=== PATIENT | male | born 1960 | race Caucasian/White ===

== ENCOUNTER 2020-07-25 21:20 | Observation (INO) | payer BC, SELFPAY ==
[2020-07-25] VITALS (8 sets, daily range): BP systolic 112–147; BP diastolic 78–124; PULSE 74–79; RESP 16–36; TEMP 36.4–36.6; O2SAT 90–100; BMI 40.6
--- NOTE | 2020-07-25 21:22 | XRR_ITS ---
PROCEDURE INFORMATION: Exam: XR Chest, 1 View Exam date and time: 07/25/2020 9:23 PM Age: 60 years old Clinical indication: Dyspnea; Prior surgery; Surgery date: Post-operative (0-2 days); Surgery type: Stents TECHNIQUE: Imaging protocol: XR of the chest Views: 1 view. COMPARISON: CT chest w con* [id number] 12/24/2018 4:55 PM FINDINGS: Lungs: Unremarkable. No consolidation. Pleural space: Unremarkable. No pleural effusion. No pneumothorax. Heart/Mediastinum: Cardiomegaly and mild pulmonary vascular congestion. Bones/joints: Unremarkable. XR/XR chest 1V portable [id number] IMPRESSION: Cardiomegaly and mild pulmonary vascular congestion.
--- NOTE | 2020-07-25 21:23 | ECG_ITS ---
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 Measurements Intervals [place] Rate: 79 P: 56 VA: 216 QRS: 11 QRSD: 126 T: 15 QT: 449 QTc: 515 Interpretive Statements SINUS RHYTHM WITH FIRST DEGREE AV BLOCK MODERATE INTRAVENTRICULAR CONDUCTION DELAY [110+ ms QRS DURATION] MODERATE ST DEPRESSION [0.05+ mV ST DEPRESSION] PROLONGED QT INTERVAL Compared to ECG 12/23/2018 10:28:40 First degree AV block now present Intraventricular conduction delay now present Prolonged QT interval now present Sinus tachycardia no longer present ST (T wave) deviation still present Electronically Signed On 07-26-2020 8:08:50 CDT by Deidra Hannah M.D. [id number] f
--- NOTE | 2020-07-25 21:42 | W.ED.SOB ---
HPI - SOB/Dyspnea General: Chief Complaint: Shortness of Breath/Dyspnea Stated Complaint: SOB Time Seen by Provider: 07/25/20 21:22 Source: patient and EMS Mode of arrival: EMS Limitations: no limitations History of Present Illness: HPI Narrative: Mr. Bishop is a 60-year-old male who comes in from home via EMS for the report of shortness of breath. Patient states he was just discharged from [facility] after a prolonged stay for heart problems. He said while he was there he received 3 stents. He states he was on oxygen and was short of breath the entire time he was there and since being discharged today he has progressively become more short of breath. He denies any chest pain. He becomes more short of breath if he lays flat or he exerts himself. The patient denies any increased edema. The patient arrives with mildly labored respirations. Associated symptoms: Reports chest congestion; Deny abdominal pain, chest pain, diaphoresis, dizziness, extremity pain, fever(s), hemoptysis, lightheadedness, nausea, orthopnea, palpitations, syncope or vomiting Review of Systems Const: Denies: fever(s), chills, body aches, fatigue, malaise or diaphoresis Eyes: Denies: change in vision, blurry vision, photophobia, eye discomfort, eye discharge, eye redness or yellow eyes ENMT: Denies: throat pain, odynophagia, hoarseness, swelling of lips/tongue, ear or mastoid pain, ear discharge, change in hearing or nasal discharge Card: Denies: chest pain, palpitations, irregular heart rhythm, edema, lightheadedness, syncope, pre-syncope, dyspnea on exertion or orthopnea Resp: Reports: dyspnea and chest congestion; Denies: productive cough, non-productive cough, wheezing or hemoptysis GI: Denies: abdominal pain, nausea, vomiting, hematemesis, coffee ground emesis, heartburn, diarrhea, constipation, GI cramping, hematochezia or melena : Denies: flank pain, dysuria, urinary frequency, urinary urgency or hematuria Musc: Denies: neck pain, back pain, extremity pain, extremity swelling, joint pain, joint swelling, joint redness, joint warmth or joint stiffness Skin/Breast: Denies: rash, pruritus, erythema, skin pain or skin tenderness Neuro: Denies: headache(s), numbness in extremities, weakness in extremities, sensory changes, lack of coordination, difficulty walking, dizziness, vertigo, confusion, Slurred speech present or seizure-like activity Sukhjinder/Lymph: Denies: easy bruising, easy bleeding, petechiae, purpura or enlarged lymph nodes All/Imm: Denies: urticaria, throat swelling, tongue swelling, facial swelling or acute wheezing Physical Exam Const: COMMON NORMALS: no acute distress, patient oriented x3, no limitations and alert GENERAL APPEARANCE: cooperative HENMT: COMMON NORMALS: normocephalic, atraumatic, external ears normal, EAC's normal and Normal external nose present HEAD & SCALP: normal to inspection, normocephalic and atraumatic FACE & SINUS: normal facial exam and face symmetric NOSE: Normal external nose present and Normal nares present EXTERNAL EAR: Yes external ears normal EXTERNAL AUDITORY CANAL: EAC's normal MOUTH: Normal oral and palatal mucosa present, lip normal and tongue normal Eye: COMMON NORMALS: Equal, round and reactive pupils present and conjunctivae normal GENERAL EYE: appearance normal, both eyes and all related structures ALIGNMENT: Yes alignment normal PERIORBITAL: periorbital findings normal EYELID: eyelids normal CONJUNCTIVA: Yes conjunctivae normal SCLERA: sclerae normal PUPIL: Yes Equal, round and reactive pupils present Neck/C-Spine: COMMON NORMALS: full ROM, no lymphadenopathy, supple, no meningeal signs and no JVD GENERAL: Yes normal visual inspection and Yes trachea midline Chest: COMMONS NORMALS: normal inspection of the chest and normal palpation of entire chest wall Resp: COMMON NORMALS: No retractions, No use of accessory muscles and clear to auscultation bilaterally EFFORT & INSPECTION: Yes able to speak in complete sentences, Yes symmetric chest movement and Yes respiratory distress AUSCULTATION: clear to auscultation bilaterally, no crackles, rales, no rhonchi, no wheezes and diminished lung sounds Cardio: COMMON NORMALS: no JVD, regular rate, regular rhythm, S1 normal heart sound present and S2 normal heart sound present RATE: regular rate RHYTHM: regular rhythm HEART SOUNDS: S1 normal heart sound present, S2 normal heart sound present, no click, no gallops, no murmurs and no rubs GI: COMMON NORMALS: Soft to palpation and No hepatosplenomegaly present PALPATION: Yes Soft to palpation, No Tenderness to palpation present (GI), No Guarding due to palpation present (GI), No Rigid due to palpation, Yes No hepatosplenomegaly present, No Hernia present, No Palpable mass present and No Pulsatile mass present : COMMON NORMALS: Yes no CVA tenderness BLADDER/KIDNEY EXAM: Yes no CVA tenderness Back/Pelvis: COMMON NORMALS: no CVA tenderness, thoracic and lumbar spine normal to inspection, no thoracic nor lumbar tenderness and thoraco-lumbar ROM normal Extremity: COMMON NORMALS: normal to inspection, full ROM, capillary refill normal, no joint enlargement, no clubbing, cyanosis or edema and no calf tenderness Neuro: COMMON NORMALS: patient oriented x3, CN's II-XII intact bilaterally, moves all extremities, no focal motor deficits and no sensory deficits noted SENSORIUM/ORIENTATION: Yes alert MENINGEAL SIGNS: Yes no meningeal signs SPEECH: speech normal Psych: COMMON NORMALS: mental status grossly normal, Normal thought process present, cooperative, normal affect, speech normal and activity/motor behavior normal SPEECH: Yes normal speech THOUGHT PROCESS: Normal thought process present Skin: COMMON NORMALS: no rashes or lesions noted, turgor normal, no jaundice, no petechiae and no mottling GENERAL SKIN EXAM: no rashes or lesions noted and turgor normal Course Vital Signs: Vital signs: Vital Signs Temperature 97.6 F 07/25/20 23:12 Pulse Rate 76 07/25/20 23:12 Respiratory Rate 29 H 07/25/20 23:12 Blood Pressure 118/78 07/25/20 23:12 Pulse Oximetry 90 07/25/20 23:12 MDM - SOB/Dyspnea MDM Narrative: Medical decision making narrative: 2315 -Mr. Bishop is a nice 60-year-old male who comes in with shortness of breath. He has orthopnea and dyspnea on exertion. His chest x-ray looks like pulmonary edema. Surprisingly his white count is high but he is afebrile. He does have chills here. Has been tested for COVID and a urinalysis is pending. I have reviewed the case with Dr. Parikh he will come to evaluate the patient the ER. Patient is markedly better now after having BiPAP for a while and is diuresed some. We are still awaiting for a discharge summary from [facility]. Lab Data: Attestation: I reviewed the patient's lab results. Labs: Lab Results 07/25/20 07/25/20 07/25/20 Range/Units 21:48 21:48 21:48 WBC 19.0 H (4.0-10.0) 10^3/ uL RBC 3.79 L (4.1-5.3) 10^6/u L Hgb 10.7 L (11.7-16.6) g/dL Hct 36.5 L (42.0-52.0) % MCV 96.3 H (80-94) fL MCH 28.2 (28.0-34.0) pg MCHC 29.3 L (30.0-36.0) g/dL RDW 16.2 H (12.1-15.1) % Plt Count 468 H (130-400) 10^3/c mm MPV 10.8 H (7.4-10.4) fL Lymph % (Auto) Not Reportable [place] % (Auto) Not Reportable Lymph # (Auto) Not Reportable [place] # (Auto) Not Reportable Total Counted 100 (0-100) Absolute Neutrophi ls 13.1 H (1.4-6.5) 10^3/c mm Segmented Neutroph ils 56 % Abs Segm Neuts (Ma n) 10.6 H (1.6-7.1) 10/cmm Band Neutrophils 13.0 % Abs Band Neuts (Ma n) 2.5 H (0.0-1.2) 10^3/c mm Lymphocytes (Manua l) 16 % Monocytes (Manual) 6.0 % Absolute Monocytes 1.1 H (0.1-0.6) 10^3/c mm Eosinophils (Manua l) 2 % Absolute Eosinophi ls 0.3 (0.0-0.7) 10^3/c mm Metamyelocytes 4.0 % Myelocytes 2.0 % Nucleated RBCs 1.0 (0-1) /100WBC Platelet Estimate Increased (Normal) Giant Platelets Trace Polychromasia 1+ H Macrocytosis 1+ H PT (12.1-14.9) SECO NDS INR (0.8-1.2) Specimen Type Sample Site ABG pH (7.35-7.45) ABG pCO2 (35-45) mmHg ABG pO2 (80.0-100.0) mmH g ABG HCO3 (22-26) mmol/L ABG O2 Saturation ABG Base Excess (-2.0-2.0) mmol/ L [place] Test A-a O2 Gradient (5-10) mmHg Hematocrit (42-52) % Hgb O2 Saturation (95-100) % Carboxyhemoglobin (0.4-20.1) %THgb Methemoglobin (0.4-1.5) % Total Hemoglobin (14-18) g/dL Ionized Calcium (1.1-1.4) mmol/L O2 Delivery Device FiO2 % Reporting Process Consultant ID Sodium 133 L (136-145) mmol/L Potassium 5.2 H (3.5-5.1) mmol/L Chloride 91 L (98-107) mmol/L Carbon Dioxide 24 (22-29) mmol/L Anion Gap 23.2 H (5-19) BUN 14 (8-23) mg/dL Creatinine 1.5 H (0.7-1.2) mg/dL GFR Calculation 47.7 L (90-130) mL/min Glucose 305 H (65-115) mg/dL Calculated Osmolal ity 288 (285-295) mOsm/k g Calcium 9.1 (8.5-10.5) mg/dL Magnesium 2.3 (1.7-2.3) mg/dL Total Bilirubin 0.6 (0.15-1.2) mg/dL AST 42 H (0-40) U/L ALT 63 H (0-41) U/L Alkaline Phosphata se 214 H (40-130) IU/L Troponin T Baselin e 58 H (0-15) ng/L NT-Pro-B Natriuret Pep 46267 H (0-125) pg/mL Total Protein 6.6 (6.6-8.7) g/dL Albumin 3.6 (3.5-5.2) g/dL Globulin 3.0 (1.3-4.6) g/dL 07/25/20 07/25/20 Range/Units 22:03 22:19 WBC (4.0-10.0) 10^3/ uL RBC (4.1-5.3) 10^6/u L Hgb (11.7-16.6) g/dL Hct (42.0-52.0) % MCV (80-94) fL MCH (28.0-34.0) pg MCHC (30.0-36.0) g/dL RDW (12.1-15.1) % Plt Count (130-400) 10^3/c mm MPV (7.4-10.4) fL Lymph % (Auto) [place] % (Auto) Lymph # (Auto) [place] # (Auto) Total Counted (0-100) Absolute Neutrophi ls (1.4-6.5) 10^3/c mm Segmented Neutroph ils % Abs Segm Neuts (Ma n) (1.6-7.1) 10/cmm Band Neutrophils % Abs Band Neuts (Ma n) (0.0-1.2) 10^3/c mm Lymphocytes (Manua l) % Monocytes (Manual) % Absolute Monocytes (0.1-0.6) 10^3/c mm Eosinophils (Manua l) % Absolute Eosinophi ls (0.0-0.7) 10^3/c mm Metamyelocytes % Myelocytes % Nucleated RBCs (0-1) /100WBC Platelet Estimate (Normal) Giant Platelets Polychromasia Macrocytosis PT 18.70 H (12.1-14.9) SECO NDS INR 1.50 H (0.8-1.2) Specimen Type Arterial Sample Site Brachial, right ABG pH 7.51 H (7.35-7.45) ABG pCO2 29.5 L (35-45) mmHg ABG pO2 168.0 H (80.0-100.0) mmH g ABG HCO3 23.4 (22-26) mmol/L ABG O2 Saturation > 100.0 ABG Base Excess 0.9 (-2.0-2.0) mmol/ L [place] Test Pos A-a O2 Gradient 10.3 H (5-10) mmHg Hematocrit 32.4 L (42-52) % Hgb O2 Saturation 98.9 (95-100) % Carboxyhemoglobin 1.3 (0.4-20.1) %THgb Methemoglobin 0.3 L (0.4-1.5) % Total Hemoglobin 10.6 L (14-18) g/dL Ionized Calcium 1.1 (1.1-1.4) mmol/L O2 Delivery Device Bipap FiO2 40.0 % Reporting Process Consultant ID [id number] Sodium 135.0 (136-145) mmol/L Potassium 4.7 (3.5-5.1) mmol/L Chloride (98-107) mmol/L Carbon Dioxide (22-29) mmol/L Anion Gap (5-19) BUN (8-23) mg/dL Creatinine (0.7-1.2) mg/dL GFR Calculation (90-130) mL/min Glucose 286.0 H (65-115) mg/dL Calculated Osmolal ity (285-295) mOsm/k g Calcium (8.5-10.5) mg/dL Magnesium (1.7-2.3) mg/dL Total Bilirubin (0.15-1.2) mg/dL AST (0-40) U/L ALT (0-41) U/L Alkaline Phosphata se (40-130) IU/L Troponin T Baselin e (0-15) ng/L NT-Pro-B Natriuret Pep (0-125) pg/mL Total Protein (6.6-8.7) g/dL Albumin (3.5-5.2) g/dL Globulin (1.3-4.6) g/dL Imaging Data^: CXR: Attestation: I personally reviewed and interpreted this imaging study as follows: My impression: Cardiomegaly with mild pulmonary vascular congestion. EKG Data^: EKG 1: Attestation: I personally reviewed and interpreted this EKG as follows: EKG Interpretation Date: 07/25/20 EKG interpretation time: 21:30 Interpretation: Normal sinus rhythm with a first-degree AV block, normal QRS and QTc interval. Nonspecific ST and T wave changes. Discharge Plan Discharge Patient Disposition: Placed in Observation Clinical Impression: Acute exacerbation of congestive heart failure Condition: Stable Prescriptions: No Action Unable to Assess RF: 0 Referrals: Brooklyn Padilla MD [Primary Care Provider] - Coding Level of Care Code ED Development Coach for Chg Fwd Exam Comprehensive
[2020-07-25] MEDS: FUROsemide 10 mg/mL SDV 4mL 40 MG IVP (21:52)
[2020-07-25] MEDS: nitroglycerin 1 gm/inch oint Pkt 1 INCH TOPICAL (21:52)
[2020-07-25 22:16] LABS: ABG PCO2 29.5 mmHg (35-45); ABG PH Result 7.51 (7.35-7.45); Alveolar-Arterial Oxygen Gradi 10.3 mmHg (5-10); Arterial Blood Gas Hematocrit 32.4 % (42-52); Base Excess ABG 0.9 mmol/L (-2.0-2.0); Blood Gas Allen Test Pos; Blood Gas Sample Site Brachial, right; Blood Gas Sample Type Arterial; Carboxyhemoglobin 1.3 %THgb (0.4-20.1); HCO3 ABG 23.4 mmol/L (22-26); HGB O2 Sat 98.9 % (95-100); Ionized Calcium Level - ABG 1.1 mmol/L (1.1-1.4); Methemoglobin 0.3 % (0.4-1.5); Oxygen Device BIPAP; Oxygen Saturation ABG > 100.0; Potassium Level - ABG 4.7 mmol/L (3.5-5.0); Total Hemoglobin 10.6 g/dL (14-18)
[2020-07-25 22:24] LABS: Hematocrit 36.5 % (42.0-52.0); Hemoglobin 10.7 g/dL (11.7-16.6); Mean Corpuscular HGB Conc 29.3 g/dL (30.0-36.0); Mean Corpuscular Hemoglobin 28.2 pg (28.0-34.0); Mean Corpuscular Volume 96.3 fL (80-94); Mean Platelet Volume 10.8 fL (7.4-10.4); Platelet Count 468 10^3/cmm (130-400); Red Blood Count 3.79 10^6/uL (4.1-5.3); Red Cell Distribution Width 16.2 % (12.1-15.1); Troponin(5th) Baseline 58 ng/L (0-15)
[2020-07-25 22:33] LABS: Alanine Aminotransferase 63 U/L (0-41); Albumin Level 3.6 g/dL (3.5-5.2); Alkaline Phosphatase 214 IU/L (40-130); Blood Urea Nitrogen 14 mg/dL (8-23); Calcium 9.1 mg/dL (8.5-10.5); Carbon Dioxide 24 mmol/L (22-29); Chloride 91 mmol/L (98-107); Creatinine Clr Calc Pharmacy 74.8083; Glomerular Filtration Rate 47.7 mL/min (90-130); Glucose 305 mg/dL (65-115); Magnesium 2.3 mg/dL (1.7-2.3); NT Pro B Type Natriuretic Pept 10096 pg/mL (0-125); Osmolality Calculated 288 mOsm/kg (285-295); Sodium 133 mmol/L (136-145); Total Bilirubin 0.6 mg/dL (0.15-1.2); Total Protein 6.6 g/dL (6.6-8.7)
[2020-07-25] MEDS: ipratropium-albuterol 3 mL Neb 9 ML INHALATION (22:35)
[2020-07-25 22:42] LABS: Anion Gap 23.2 (5-19); Aspartate Amino Transferase 42 U/L (0-40); Potassium 5.2 mmol/L (3.5-5.1)
[2020-07-25 23:00] LABS: Slide Review Slide Review Perform
[2020-07-25 23:01] LABS: Absolute Eosinophils 0.3 10^3/cmm (0.0-0.7); Absolute Segmented Neutrophil 10.6 10/cmm (1.6-7.1); Band Neutrophils Absolute 2.5 10^3/cmm (0.0-1.2); Eosinophils 2 %; Lymphocytes 16 %; Monocytes Absolute 1.1 10^3/cmm (0.1-0.6); Segmented Neutrophils 56 %; Total Cells Counted 100 (0-100)
[2020-07-25 23:02] LABS: Absolute Neutrophil 13.1 10^3/cmm (1.4-6.5); Giant Platelets Trace; Macrocytosis 1+; Platelet Estimate Increased (Normal); Polychromasia 1+
--- NOTE | 2020-07-25 23:23 | ECG_ITS ---
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 Measurements Intervals [place] Rate: 78 P: 20 MA: 199 QRS: 19 QRSD: 121 T: 50 QT: 403 QTc: 459 Interpretive Statements SINUS RHYTHM WITH SINUS ARRHYTHMIA MODERATE INTRAVENTRICULAR CONDUCTION DELAY [110+ ms QRS DURATION] ST DEVIATION AND MODERATE T-WAVE ABNORMALITY, CONSIDER ANTEROLATERAL ISCHEMIA [-0.1+ mV T WAVE IN V3-V6] WARNING: DATA QUALITY MAY AFFECT INTERPRETATION Compared to ECG 12/23/2018 10:28:40 Intraventricular conduction delay now present T-wave abnormality now present Possible ischemia now present Sinus tachycardia no longer present ST (T wave) deviation no longer present Electronically Signed On 07-26-2020 8:41:48 CDT by Deidra Hannah M.D. [id number]
[2020-07-25] MEDS: piperacillin-tazobactam 3.375 GM in sodium chloride 0.9% (plus) 50 ML IV (23:30)
--- NOTE | 2020-07-25 23:37 | P.HP_ITS ---
Providers/Chief Complaint Primary Care Provider: Brooklyn Padilla MD Chief Complaint: SOB History of Present Illness Kulwant Bishop is a 60 year old male who was discharged yesterday from [facility] after management of cardiogenic shock, PCI of circumflex 07/23, reduced ejection fraction heart failure EF 25 to 30%, was discharged without any oxygen or Lasix came in today for worsening shortness of breath. At the other facility he was intubated for acute respiratory failure, he self extubated on 07/06, did not require reintubation, ICU course was complicated by severe ICU delirium. He required Precedex and antipsychotics for his hyperactive delirium. Paracentesis was unsuccessful, he was diagnosed with new onset diabetes A1c 6.6, he was recommended SNF placement which patient declined. He did not require oxygen at the time of discharge. Patient came to the emergency department today after experiencing orthopnea, PND and worsening of shortness of breath. He did not notice any fever, productive cough, dysuria change in bowel movements. He is denying use of alcohol, does not smoke cigarettes. Diagnosis in the ER revealed leukocytosis, atrial fibrillation without RVR, anemia hemoglobin 10.7, macrocytic, congestive heart failure exacerbation with high BNP 10,000, respiratory alkalosis, he was given Zosyn in the ER, there is no source of infection, glucose 286 potassium 5.2, creatinine 1.5 patient not complaining of any active chest pain/troponin 58, no ischemic or infarctive changes on EKG. He was put on BiPAP, nitroglycerin 1 inch paste and 40 milligrams of IV Lasix was given Review of Systems Const: Reports: chills, body aches and fatigue; Denies: fever(s) Eyes: Denies: change in vision ENMT: Denies: throat pain Card: Reports: swelling of feet/ankles, dyspnea on exertion and orthopnea Resp: Reports: dyspnea and non-productive cough; Denies: productive cough GI: Denies: abdominal pain, diarrhea or constipation : Denies: flank pain Musc: Denies: neck pain Skin/Breast: Denies: rash Neuro: Denies: headache(s) Psych: Denies: anxiety Endo: Denies: polyuria Sukhjinder/Lymph: Denies: easy bruising All/Imm: Denies: urticaria Medications/Allergies Home Medications Medication Instructions Recorded Confirmed Last Taken Type Unable to Assess 07/25/20 07/25/20 Unknown History Allergies Allergy/AdvReac Type Severity Reaction Status Date / Time codeine Allergy Unknown Verified 07/25/20 21:25 PFSH Acute PFSH: Medical History (Updated 07/26/20 @ 02:31 by Hunter Parikh MD) Atrial fibrillation 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 Family History Father Chronic kidney disease (CKD) Social History Smoking and tobacco status: former smoker Quit status (tobacco): has quit using tobacco Former quit date comment: 2014 Alcohol intake: former Substance/Drug Use: never Household members: spouse Housing: House Vitals/I&O/Wt Last Vital Signs Temp 97.6 F 07/25/20 23:12 Pulse 76 07/25/20 23:12 Resp 29 H 07/25/20 23:12 BP 118/78 07/25/20 23:12 Pulse Ox 90 07/25/20 23:12 Weight last 48 hrs Weight 136.078 kg Physical Exam Narrative: EXAM NARRATIVE: Morbidly obese male sitting comfortably in his bed Required BiPAP in the ER at the time of my evaluation he is saturating well on room air Systolic blood pressure 97, Nitropaste was removed Patient was awake alert oriented x3, GCS 15 S1, S2 clinical signs of fluid overload Lower extremity edema 2+ Hard to assess JVD Bilateral breath sounds without adventitious rhonchi or wheezing Abdomen distended bowel sound present Pedal, lower extremity 2+ edema EOMI, PERRLA Data : 07/25/20 21:48 07/25/20 21:48 A&P Assessment and plan (1) Acute exacerbation of congestive heart failure: Status: Acute Qualifiers: Heart failure type: unspecified Qualified Code(s): I50.9 - Heart failure, unspecified (2) Newly diagnosed diabetes: Status: Acute (3) Hyperkalemia: Status: Acute (4) Morbid obesity: Status: Acute (5) Acute respiratory failure with hypoxia: Status: Acute Additional A&P Information Acute exacerbation of reduced ejection fraction heart failure(EF 30%) Recent PCI at [facility] on 07/23 No active chest pain, no ischemic or infarctive changes on EKG, troponin baselin e 58, Serial troponin and EKG I would add Bumex considering his high BNP and clinical signs of fluid overload Chest x-ray shows pulmonary vascular congestion, abnormal transaminases secondary to hepatic congestion, Continue aspirin, Plavix, statin and metoprolol succinate Holding lisinopril secondary to abnormal creatinine Acute hypoxic respiratory failure secondary to CHF exacerbation Currently doing well on BiPAP Will need home O2 assessment before discharge No signs of pneumonia He had received Zosyn in the ER secondary to leukocytosis which I believe is leukemoid reaction to stress I would not continue antibiotics at this point, patient not septic at the time of admission Acute kidney injury Most likely cardiorenal etiology Holding lisinopril Anticipating improvement with diuresis For mild hyperkalemia I would only give calcium gluconate x1, will hold off on Kayexalate Newly diagnosed type 2 diabetes Moderate sliding scale Full code DVT prophylaxis Heparin Cardiac consistent carb diet Attestations Medical Necessity Statement*: Anticipating discharge in less than 48 hours continued management for acute CHF exacerbation Time Spent in Patient Care: (>than 50% of time spent in counselling and/or direct pt care on unit) . 40 minutes Coding Level of Care Code Acute Control Systems Specialist for Vianca Maloney Diagnoses Acute exacerbation of congestive heart failure I50.9 Heart failure type: unspecified Newly diagnosed diabetes E11.9 Hyperkalemia E87.5 Morbid obesity E66.01 Acute respiratory failure with hypoxia J96.01
[2020-07-25 23:43] LABS: SARS Covid-2 Antigen Negative (Negative)
[2020-07-26] VITALS (36 sets, daily range): BP systolic 59–114; BP diastolic 45–89; PULSE 70–80; RESP 9–30; TEMP 36.6–36.8; O2SAT 80–100
--- NOTE | 2020-07-26 01:00 | PC.NURSE ---
Patient arrived to unit via stretcher. Patient alert and oriented and able to follow commands. Patient answered all admission questions and rolled into the bed and allowed us to examine and change patient. Patient settled into bed and RT in room to set up Bipap. Got new order for lanolin lip balm to help with drying. 20 G noted to Left wrist flushed and patent. VS WNL will continue to monitor and assist as needed following CPOC
[2020-07-26 01:38] LABS: Add Urine Microscopic? NO
[2020-07-26 01:50] LABS: Bilirubin Urine Neg (Negative); Blood Urine Neg (Negative); Glucose Urine UA Norm (Normal); Ketones Urine Negative (Negative); Leukocyte Esterase Urine Negative (Negative); Nitrate Urine Negative (Negative); Protein Urine Neg (Negative); Specific Gravity, Urine 1.005 (1.005-1.030); Urine Appearance Clear (CLEAR); Urine Color Yellow (Yellow); Urobilinogen Urine Norm (Negative); pH Urine 6.5 (5-7)
--- NOTE | 2020-07-26 02:35 | PC.NURSE ---
Patient Urinalysis sample collected and sent to lab. Patient still alert and oriented awakened for medications gave atorvastatin and Lovenox injection for VTE. Patient still alert and oriented and cooperative. Placed on Bipap therapy at this time for CO2 retention and low O2 saturations. Will continue to monitor patient tolerating bipap well at this time. settings 18/6 at 35 FiO2. Full face mask in use.
[2020-07-26] MEDS: atorvastatin 40 mg Tablet 80 MG PO (02:41)
[2020-07-26] MEDS: lanolin oint 7 gm 1 APPLIC TOPICAL (02:42)
--- NOTE | 2020-07-26 03:30 | PC.NURSE ---
Patient calling out went to room and patient had pulled out IV. Hemostasis already achieved. patient confused and not wearing Bipap was back on nasal canula at 4 L O2. Patient incoherent at this time. RT notified and message sent to Hospitalist transmission operator. New IV started to R forearm 20 G patent and intact with good flush and brisk blood return noted. Coban wrapped to help protect site. Patient stating I am wet patient bedding checked and patient was not incontinent at this time. Patient making statements about this telegraphic typewriter operator being an and that this was an [facility]. Patient unable to be reoriented at this time. Patient was finally convineced to put on Bipap and provider responded that according to documents from other facility this was a common behavior for this patient. Will continue to monitor and assist as needed following CPOC.
[2020-07-26 03:51] LABS: Basophils # 0.1 10^3/uL (0.0-0.1); Basophils % 0.5 %; Eosinophils # 0.1 10^3/uL (0.0-0.8); Eosinophils % 0.6 %; Hematocrit 29.5 % (42.0-52.0); Hemoglobin 8.8 g/dL (11.7-16.6); Lymphocytes # 1.2 10^3/uL (0.8-4.8); Lymphocytes % 8.1 %; Mean Corpuscular HGB Conc 29.8 g/dL (30.0-36.0); Mean Corpuscular Hemoglobin 28.3 pg (28.0-34.0); Mean Corpuscular Volume 94.9 fL (80-94); Mean Platelet Volume 10.5 fL (7.4-10.4); Monocytes % 6.6 %; Neutrophils # 10.83 10^3/uL (1.8-7.7); Neutrophils % 71.9 %; Nucleated Red Blood Cells # 0.3 /100WBC; Nucleated Red Blood Cells % 1.9 %; Platelet Count 340 10^3/cmm (130-400); Red Blood Count 3.11 10^6/uL (4.1-5.3); Red Cell Distribution Width 15.9 % (12.1-15.1); White Blood Count 15.1 10^3/uL (4.0-10.0)
[2020-07-26 04:11] LABS: Troponin 5 6HR 43.03 ng/L (0-15)
[2020-07-26 04:12] LABS: Anion Gap 14.5 (5-19); Blood Urea Nitrogen 17 mg/dL (8-23); Calcium 8.8 mg/dL (8.5-10.5); Carbon Dioxide 30 mmol/L (22-29); Chloride 95 mmol/L (98-107); Creatinine Clr Calc Pharmacy 80.1517; Glomerular Filtration Rate 51.7 mL/min (90-130); Glucose 122 mg/dL (65-115); Osmolality Calculated 283 mOsm/kg (285-295); Potassium 4.5 mmol/L (3.5-5.1); Sodium 135 mmol/L (136-145)
--- NOTE | 2020-07-26 04:20 | PC.NURSE ---
This promotion writer and RT have made several attempts to maintain patient with bipap therapy and WNL SpO2. Patient remains confused and again told this promotion writer that he was cold and bed was wet asking this promotion writer to get some of the wood over there and start a fire so we could get warm. Patient was checked and again was not incontinent at this time. Attempted to redirect and reorient patient with little success. Patient left with Bipap on and breathing normally SpO2 of 96 noted. Patient still moaning and confused. Will continue to monitor and assist as needed following CPOC patient assisted with repositioning at this time.
--- NOTE | 2020-07-26 05:00 | PC.NURSE ---
Patient again called out using call light this time. Patient on 4 L NC and not agreeable to wear Bipap. RT left patient on NC. Patient stated he was wet. Patient checked and this time patient was wet and required a complete bed change. MUSHROOM CULTIVATOR notified as this nurse was asked to help with some furniture moving and repositioning of room for new admit coming to another room. When this nurse came back out from completing said task light was out and patient was laying in bed with eyes closed and did not voice any further concern.
--- NOTE | 2020-07-26 06:00 | PC.NURSE ---
RT and Charge nurse in to talk with patient as patient requesting to leave AMA. Volte message sent to provider which was read but no response. Patient very upset and demanding to leave. Patient appears to be very coherent now Voicing concerns about stay with [facility] and sent home with no oxygen and going down hill from there. Staff tried to talk with patient to have him wait to obtain oxygen provider finally in to speak with patient and try to calm concerns. Patient very attimant that he was going home now. Patient threatened GOVERNMENT PROFESSOR with her job if she did not take him out to car right this minute. GOVERNMENT PROFESSOR reponded that she was unable to at this time due to paperwork being incomplete and IV still inplace. Patient got very verbal with GOVERNMENT PROFESSOR. Will continue to monitor and assist as needed.
--- NOTE | 2020-07-26 06:50 | PC.NURSE ---
Dr. Parikh came and seen patient since he was wanting to leave against medical advice. Patient stated to Dr. Parikh that his only complaint was that he was wet and he was wanting to leave. Jl went over risks of leaving against medical advice and Jl states patient is alert enough to sign AMA paper. Patient signed and wheeled out by staff to ER entrance.
--- NOTE | 2020-07-26 07:00 | PC.NURSE ---
Patient assisted to wheelchair by COAL SHOVELER and wheeled out to POV for discharge. AMA papers signed and patient left facility in hospital gown via wheelchair and POV driven by family. Time of discharge 0710
== END 2020-07-26 07:05 | disposition home or self-care (01) ==
LOC: ER 23:17 → CSU 07-26 00:06
PROVIDERS: Admitting Provider Internal Medicine; Emergency Provider Emergency Medicine; PCP Family Medicine; Visit Provider Student in an Organized Health Care Education/Training Program
DX: I50.9 Heart failure, unspecified (principal); J96.01 Acute respiratory failure with hypoxia; I48.91 Unspecified atrial fibrillation; I10 Essential (primary) hypertension; E11.9 Type 2 diabetes mellitus without complications; E87.5 Hyperkalemia; I25.10 Atherosclerotic heart disease of native coronary artery without angina pectoris; E66.01 Morbid (severe) obesity due to excess calories; Z68.41 Body mass index [BMI] 40.0-44.9, adult; Z79.01 Long term (current) use of anticoagulants; Z87.891 Personal history of nicotine dependence; Z95.5 Presence of coronary angioplasty implant and graft; Z88.5 Allergy status to narcotic agent; Z53.29 Procedure and treatment not carried out because of patient's decision for other reasons
CPT/HCPCS: 12345; 36415; 36600; 71045; 80048; 80051; 80053; 81003; 82810; 83735; 83880; 83986; 84484; 85007; 85025; 85610; 87426; 93005; 94640; 94660; 96365; 96367; 96375; 99284; 99291; G0378; J0610; J1940; J2543

== ENCOUNTER 2020-07-27 15:33 | Observation (INO) | payer BC, SELFPAY ==
[2020-07-27] VITALS (10 sets, daily range): BP systolic 105–150; BP diastolic 53–89; PULSE 72–79; RESP 17–22; TEMP 36.4–37.2; O2SAT 93–100; BMI 38.6
--- NOTE | 2020-07-27 15:40 | XRR_ITS ---
PROCEDURE INFORMATION: Exam: XR Chest, 1 View Exam date and time: 07/27/2020 3:42 PM Age: 60 years old Clinical indication: Shortness of breath; Additional info: Dyspnea TECHNIQUE: Imaging protocol: XR of the chest Views: 1 view. COMPARISON: CR XR chest 1V portable [id number] 07/25/2020 9:23 PM FINDINGS: Lungs: Bilateral mild senile fibrosis. No visible evidence of active consolidated alveolar airspace disease. Pleural space: Unremarkable. No pleural effusion. No pneumothorax. Heart/Mediastinum: Cardiomegaly. Bones/joints: Unremarkable. XR/XR chest 1V portable [id number] IMPRESSION: Stable nonacute.
--- NOTE | 2020-07-27 15:41 | ECG_ITS ---
[facility] Test Date: 2020-07-27 Pat Name: Kulwant Bishop Department: Room: Gender: Male Arterial Embalmer: : 1960 Requested By: Laurel Skinner Order Number: [id number] Renea MD: Cain Balderas M.D. Measurements Intervals Delton Rate: 73 P: 39 IL: 189 QRS: 28 QRSD: 118 T: 27 QT: 423 QTc: 466 Interpretive Statements SINUS RHYTHM MODERATE INTRAVENTRICULAR CONDUCTION DELAY [110+ ms QRS DURATION] NONSPECIFIC ST & T-WAVE ABNORMALITY Compared to ECG 07/25/2020 23:04:23 Sinus arrhythmia no longer present Possible ischemia no longer present T-wave abnormality still present Electronically Signed On 07-28-2020 19:11:08 CDT by Cain Balderas M.D. [id number] f
--- NOTE | 2020-07-27 16:17 | W.ED.SOB ---
HPI - SOB/Dyspnea General: Chief Complaint: Shortness of Breath/Dyspnea Stated Complaint: HYPOXIA Time Seen by Provider: 07/27/20 15:40 Source: patient and EMS Mode of arrival: EMS Limitations: no limitations History of Present Illness: HPI Narrative: Kulwant is a 60-year-old male who recently had stents placed and was treated at [facility] in [place] for a prolonged period of time. He was recently admitted here to the hospital by me for exacerbation of congestive heart failure. By report the patient apparently left AMA the next morning. He states he was tired of sitting and a urine soaked diaper that he wore. Patient states that since going home he has become short of breath again and that is why he is return to the hospital. He denies any chest pain, fever, headache, injuries or infectious symptoms. He has no cough. He states he needs oxygen and he would be fine. Patient does have mild labored respirations on exam. Associated symptoms: Deny abdominal pain, chest congestion, chest pain, diaphoresis, dizziness, extremity pain, fever(s), hemoptysis, lightheadedness, nausea, orthopnea, palpitations, syncope or vomiting Review of Systems Const: Denies: fever(s), chills, body aches, fatigue, malaise or diaphoresis Eyes: Denies: change in vision, blurry vision, photophobia, eye discomfort, eye discharge, eye redness or yellow eyes ENMT: Denies: throat pain, odynophagia, hoarseness, swelling of lips/tongue, ear or mastoid pain, ear discharge, change in hearing or nasal discharge Card: Reports: edema and swelling of feet/ankles; Denies: chest pain, palpitations, irregular heart rhythm, lightheadedness, syncope, pre-syncope, dyspnea on exertion or orthopnea Resp: Reports: dyspnea; Denies: productive cough, non-productive cough, wheezing, hemoptysis or chest congestion GI: Denies: abdominal pain, nausea, vomiting, hematemesis, coffee ground emesis, heartburn, diarrhea, constipation, GI cramping, hematochezia or melena : Denies: flank pain, dysuria, urinary frequency, urinary urgency or hematuria Musc: Denies: neck pain, back pain, extremity pain, extremity swelling, joint pain, joint swelling, joint redness, joint warmth or joint stiffness Skin/Breast: Denies: rash, pruritus, erythema, skin pain or skin tenderness Neuro: Denies: headache(s), numbness in extremities, weakness in extremities, sensory changes, lack of coordination, difficulty walking, dizziness, vertigo, confusion, Slurred speech present or seizure-like activity Sukhjinder/Lymph: Denies: easy bruising, easy bleeding, petechiae, purpura or enlarged lymph nodes All/Imm: Denies: urticaria, throat swelling, tongue swelling, facial swelling or acute wheezing PFSH ED PFSH: Medical History (Updated 07/27/20 @ 17:51 by Laurel Estrada) Atrial fibrillation 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 Chronic anticoagulation Congestive heart failure Coronary artery disease DM type 2 (diabetes mellitus, type 2) Hypertension Surgical History Hx of colonoscopy Removal of polyp tubular adenoma S/P coronary artery stent placement Stented coronary artery Circumflex, 07/23 at [facility] Family History Father Chronic kidney disease (CKD) Social History Smoking and tobacco status: former smoker Quit status (tobacco): has quit using tobacco Former quit date comment: 2014 Alcohol intake: former Household members: spouse Housing: House Physical Exam Const: COMMON NORMALS: no acute distress, patient oriented x3, no limitations and alert GENERAL APPEARANCE: cooperative HENMT: COMMON NORMALS: normocephalic, atraumatic, external ears normal, EAC's normal and Normal external nose present HEAD & SCALP: normal to inspection, normocephalic and atraumatic FACE & SINUS: normal facial exam and face symmetric NOSE: Normal external nose present and Normal nares present EXTERNAL EAR: Yes external ears normal EXTERNAL AUDITORY CANAL: EAC's normal MOUTH: Normal oral and palatal mucosa present, lip normal and tongue normal Eye: COMMON NORMALS: Equal, round and reactive pupils present and conjunctivae normal GENERAL EYE: appearance normal, both eyes and all related structures ALIGNMENT: Yes alignment normal PERIORBITAL: periorbital findings normal EYELID: eyelids normal CONJUNCTIVA: Yes conjunctivae normal SCLERA: sclerae normal PUPIL: Yes Equal, round and reactive pupils present Neck/C-Spine: COMMON NORMALS: full ROM, no lymphadenopathy, supple, no meningeal signs and no JVD GENERAL: Yes normal visual inspection and Yes trachea midline Chest: COMMONS NORMALS: normal inspection of the chest and normal palpation of entire chest wall Resp: COMMON NORMALS: normal respiratory effort, No retractions, No use of accessory muscles and clear to auscultation bilaterally EFFORT & INSPECTION: Yes able to speak in complete sentences and Yes symmetric chest movement AUSCULTATION: clear to auscultation bilaterally, no crackles, rales, no rhonchi and no wheezes Cardio: COMMON NORMALS: no JVD, regular rate, regular rhythm, S1 normal heart sound present and S2 normal heart sound present RATE: regular rate RHYTHM: regular rhythm HEART SOUNDS: S1 normal heart sound present, S2 normal heart sound present, no click, no gallops, no murmurs and no rubs GI: COMMON NORMALS: Soft to palpation and No hepatosplenomegaly present PALPATION: Yes Soft to palpation, No Tenderness to palpation present (GI), No Guarding due to palpation present (GI), No Rigid due to palpation, Yes No hepatosplenomegaly present, No Hernia present, No Palpable mass present and No Pulsatile mass present : COMMON NORMALS: Yes no CVA tenderness BLADDER/KIDNEY EXAM: Yes no CVA tenderness Back/Pelvis: COMMON NORMALS: no CVA tenderness, thoracic and lumbar spine normal to inspection, no thoracic nor lumbar tenderness and thoraco-lumbar ROM normal Extremity: COMMON NORMALS: normal to inspection, full ROM, capillary refill normal, no joint enlargement, no clubbing, cyanosis or edema and no calf tenderness Neuro: COMMON NORMALS: patient oriented x3, CN's II-XII intact bilaterally, moves all extremities, no focal motor deficits and no sensory deficits noted SENSORIUM/ORIENTATION: Yes alert MENINGEAL SIGNS: Yes no meningeal signs SPEECH: speech normal Psych: COMMON NORMALS: mental status grossly normal, Normal thought process present, cooperative, normal affect, speech normal and activity/motor behavior normal SPEECH: Yes normal speech THOUGHT PROCESS: Normal thought process present Skin: COMMON NORMALS: no rashes or lesions noted, turgor normal, no jaundice, no petechiae and no mottling GENERAL SKIN EXAM: no rashes or lesions noted and turgor normal Course Vital Signs: Vital signs: Vital Signs Temperature 98.9 F 07/27/20 15:43 Pulse Rate 75 07/27/20 15:43 Respiratory Rate 18 07/27/20 15:43 Blood Pressure 128/76 07/27/20 15:43 Pulse Oximetry 100 07/27/20 15:43 MDM - SOB/Dyspnea MDM Narrative: Medical decision making narrative: Patient appears to be in mild to moderate congestive heart failure. He cannot ambulate without hypoxia or significant weakness. I reviewed the case with Dr. Agee she is revealed to admission at this time. Lab Data: Labs: Lab Results 07/27/20 07/27/20 07/27/20 Range/Units 16:24 16:24 16:24 WBC 16.3 H (4.0-10.0) 10^3/ uL Corrected WBC 15.1 H (4.8-10.8) 10^3/ cmm RBC 3.36 L (4.1-5.3) 10^6/u L Hgb 9.7 L (11.7-16.6) g/dL Hct 32.5 L (42.0-52.0) % MCV 96.7 H (80-94) fL MCH 28.9 (28.0-34.0) pg MCHC 29.8 L (30.0-36.0) g/dL RDW 16.4 H (12.1-15.1) % Plt Count 370 (130-400) 10^3/c mm MPV 10.4 (7.4-10.4) fL Lymph % (Auto) Not Reportable Barnes % (Auto) Not Reportable Lymph # (Auto) Not Reportable Barnes # (Auto) Not Reportable Total Counted 100 (0-100) Absolute Neutrophi ls 10.3 H (1.4-6.5) 10^3/c mm Segmented Neutroph ils 53 % Abs Segm Neuts (Ma n) 8.6 H (1.6-7.1) 10/cmm Band Neutrophils 10.0 % Abs Band Neuts (Ma n) 1.6 H (0.0-1.2) 10^3/c mm Lymphocytes (Manua l) 26 % Monocytes (Manual) 6.0 % Absolute Monocytes 1.0 H (0.1-0.6) 10^3/c mm Eosinophils (Manua l) 2 % Absolute Eosinophi ls 0.3 (0.0-0.7) 10^3/c mm Metamyelocytes 3.0 % Nucleated RBCs 8.0 H (0-1) /100WBC Platelet Estimate Normal (Normal) Polychromasia 1+ H Poikilocytosis 1+ H Anisocytosis 1+ H Macrocytosis 1+ H PT 18.40 H (12.1-14.9) SECO NDS INR 1.48 H (0.8-1.2) Specimen Type Sample Site ABG pH (7.35-7.45) ABG pCO2 (35-45) mmHg ABG pO2 (80.0-100.0) mmH g ABG HCO3 (22-26) mmol/L ABG O2 Saturation ABG Base Excess (-2.0-2.0) mmol/ L Bebeto Test A-a O2 Gradient (5-10) mmHg Hematocrit (42-52) % Hgb O2 Saturation (95-100) % Carboxyhemoglobin (0.4-20.1) %THgb Methemoglobin (0.4-1.5) % Total Hemoglobin (14-18) g/dL Ionized Calcium (1.1-1.4) mmol/L O2 Delivery Device O2 Liters/Min % FiO2 % Video Systems Engineer ID Sodium 133 L (136-145) mmol/L Potassium 5.0 (3.5-5.1) mmol/L Chloride 94 L (98-107) mmol/L Carbon Dioxide 27 (22-29) mmol/L Anion Gap 17.0 (5-19) BUN 20 (8-23) mg/dL Creatinine 1.3 H (0.7-1.2) mg/dL GFR Calculation 56.3 L (90-130) mL/min Glucose 102 (65-115) mg/dL Calculated Osmolal ity 279 L (285-295) mOsm/k g Lactic Acid (0.5-2.2) mmol/L Calcium 9.0 (8.5-10.5) mg/dL Magnesium 2.1 (1.7-2.3) mg/dL Total Bilirubin 0.5 (0.15-1.2) mg/dL AST 46 H (0-40) U/L ALT 99 H (0-41) U/L Alkaline Phosphata se 309 H (40-130) IU/L Creatine Kinase 42 (39-308) U/L Troponin T Baselin e (0-15) ng/L NT-Pro-B Natriuret Pep 5814 H (0-125) pg/mL Total Protein 6.3 L (6.6-8.7) g/dL Albumin 3.5 (3.5-5.2) g/dL Globulin 2.8 (1.3-4.6) g/dL Lipase 26 (13-60) U/L Urine Color (Yellow) Urine Appearance (CLEAR) Urine pH (5-7) Ur Specific Gravit y (1.005-1.030) Urine Protein (Negative) Urine Glucose (UA) (Normal) Urine Ketones (Negative) Urine Blood (Negative) Urine Nitrate (Negative) Urine Bilirubin (Negative) Urine Urobilinogen (Negative) mg/dL Ur Leukocyte Ivon ase (Negative) 07/27/20 07/27/20 07/27/20 Range/Units 16:24 16:24 16:27 WBC (4.0-10.0) 10^3/ uL Corrected WBC (4.8-10.8) 10^3/ cmm RBC (4.1-5.3) 10^6/u L Hgb (11.7-16.6) g/dL Hct (42.0-52.0) % MCV (80-94) fL MCH (28.0-34.0) pg MCHC (30.0-36.0) g/dL RDW (12.1-15.1) % Plt Count (130-400) 10^3/c mm MPV (7.4-10.4) fL Lymph % (Auto) Barnes % (Auto) Lymph # (Auto) Barnes # (Auto) Total Counted (0-100) Absolute Neutrophi ls (1.4-6.5) 10^3/c mm Segmented Neutroph ils % Abs Segm Neuts (Ma n) (1.6-7.1) 10/cmm Band Neutrophils % Abs Band Neuts (Ma n) (0.0-1.2) 10^3/c mm Lymphocytes (Manua l) % Monocytes (Manual) % Absolute Monocytes (0.1-0.6) 10^3/c mm Eosinophils (Manua l) % Absolute Eosinophi ls (0.0-0.7) 10^3/c mm Metamyelocytes % Nucleated RBCs (0-1) /100WBC Platelet Estimate (Normal) Polychromasia Poikilocytosis Anisocytosis Macrocytosis PT (12.1-14.9) SECO NDS INR (0.8-1.2) Specimen Type Sample Site ABG pH (7.35-7.45) ABG pCO2 (35-45) mmHg ABG pO2 (80.0-100.0) mmH g ABG HCO3 (22-26) mmol/L ABG O2 Saturation ABG Base Excess (-2.0-2.0) mmol/ L Bebeto Test A-a O2 Gradient (5-10) mmHg Hematocrit (42-52) % Hgb O2 Saturation (95-100) % Carboxyhemoglobin (0.4-20.1) %THgb Methemoglobin (0.4-1.5) % Total Hemoglobin (14-18) g/dL Ionized Calcium (1.1-1.4) mmol/L O2 Delivery Device O2 Liters/Min % FiO2 % Video Systems Engineer ID Sodium (136-145) mmol/L Potassium (3.5-5.1) mmol/L Chloride (98-107) mmol/L Carbon Dioxide (22-29) mmol/L Anion Gap (5-19) BUN (8-23) mg/dL Creatinine (0.7-1.2) mg/dL GFR Calculation (90-130) mL/min Glucose (65-115) mg/dL Calculated Osmolal ity (285-295) mOsm/k g Lactic Acid 1.8 (0.5-2.2) mmol/L Calcium (8.5-10.5) mg/dL Magnesium (1.7-2.3) mg/dL Total Bilirubin (0.15-1.2) mg/dL AST (0-40) U/L ALT (0-41) U/L Alkaline Phosphata se (40-130) IU/L Creatine Kinase (39-308) U/L Troponin T Baselin e 33 H (0-15) ng/L NT-Pro-B Natriuret Pep (0-125) pg/mL Total Protein (6.6-8.7) g/dL Albumin (3.5-5.2) g/dL Globulin (1.3-4.6) g/dL Lipase (13-60) U/L Urine Color Yellow (Yellow) Urine Appearance Clear (CLEAR) Urine pH 5 (5-7) Ur Specific Gravit y 1.010 (1.005-1.030) Urine Protein Neg (Negative) Urine Glucose (UA) Norm (Normal) Urine Ketones Negative (Negative) Urine Blood Neg (Negative) Urine Nitrate Negative (Negative) Urine Bilirubin Neg (Negative) Urine Urobilinogen Norm (Negative) mg/dL Ur Leukocyte Ivon ase Negative (Negative) 07/27/20 Range/Units 16:30 WBC (4.0-10.0) 10^3/ uL Corrected WBC (4.8-10.8) 10^3/ cmm RBC (4.1-5.3) 10^6/u L Hgb (11.7-16.6) g/dL Hct (42.0-52.0) % MCV (80-94) fL MCH (28.0-34.0) pg MCHC (30.0-36.0) g/dL RDW (12.1-15.1) % Plt Count (130-400) 10^3/c mm MPV (7.4-10.4) fL Lymph % (Auto) Barnes % (Auto) Lymph # (Auto) Barnes # (Auto) Total Counted (0-100) Absolute Neutrophi ls (1.4-6.5) 10^3/c mm Segmented Neutroph ils % Abs Segm Neuts (Ma n) (1.6-7.1) 10/cmm Band Neutrophils % Abs Band Neuts (Ma n) (0.0-1.2) 10^3/c mm Lymphocytes (Manua l) % Monocytes (Manual) % Absolute Monocytes (0.1-0.6) 10^3/c mm Eosinophils (Manua l) % Absolute Eosinophi ls (0.0-0.7) 10^3/c mm Metamyelocytes % Nucleated RBCs (0-1) /100WBC Platelet Estimate (Normal) Polychromasia Poikilocytosis Anisocytosis Macrocytosis PT (12.1-14.9) SECO NDS INR (0.8-1.2) Specimen Type Arterial Sample Site Brachial, right ABG pH 7.49 H (7.35-7.45) ABG pCO2 39.0 (35-45) mmHg ABG pO2 86.9 (80.0-100.0) mmH g ABG HCO3 29.6 H (22-26) mmol/L ABG O2 Saturation 98.0 ABG Base Excess 5.8 H (-2.0-2.0) mmol/ L Bebeto Test Pos A-a O2 Gradient 12.2 H (5-10) mmHg Hematocrit 28.1 L (42-52) % Hgb O2 Saturation 95.5 (95-100) % Carboxyhemoglobin 1.8 (0.4-20.1) %THgb Methemoglobin 0.8 (0.4-1.5) % Total Hemoglobin 9.2 L (14-18) g/dL Ionized Calcium 1.1 (1.1-1.4) mmol/L O2 Delivery Device Nc O2 Liters/Min 3.0 % FiO2 32.0 % Video Systems Engineer ID Bd Sodium 134.0 (136-145) mmol/L Potassium 4.7 (3.5-5.1) mmol/L Chloride (98-107) mmol/L Carbon Dioxide (22-29) mmol/L Anion Gap (5-19) BUN (8-23) mg/dL Creatinine (0.7-1.2) mg/dL GFR Calculation (90-130) mL/min Glucose 103.0 (65-115) mg/dL Calculated Osmolal ity (285-295) mOsm/k g Lactic Acid (0.5-2.2) mmol/L Calcium (8.5-10.5) mg/dL Magnesium (1.7-2.3) mg/dL Total Bilirubin (0.15-1.2) mg/dL AST (0-40) U/L ALT (0-41) U/L Alkaline Phosphata se (40-130) IU/L Creatine Kinase (39-308) U/L Troponin T Baselin e (0-15) ng/L NT-Pro-B Natriuret Pep (0-125) pg/mL Total Protein (6.6-8.7) g/dL Albumin (3.5-5.2) g/dL Globulin (1.3-4.6) g/dL Lipase (13-60) U/L Urine Color (Yellow) Urine Appearance (CLEAR) Urine pH (5-7) Ur Specific Gravit y (1.005-1.030) Urine Protein (Negative) Urine Glucose (UA) (Normal) Urine Ketones (Negative) Urine Blood (Negative) Urine Nitrate (Negative) Urine Bilirubin (Negative) Urine Urobilinogen (Negative) mg/dL Ur Leukocyte Ivon ase (Negative) Imaging Data^: CXR: Attestation: I personally reviewed and interpreted this imaging study as follows: My impression: Mild pulmonary vascular congestion. Unchanged from previous. EKG Data^: EKG 1: Attestation: I personally reviewed and interpreted this EKG as follows: EKG Interpretation Date: 07/27/20 EKG interpretation time: 16:55 Interpretation: Normal sinus rhythm at 73 beats a minute, no blocks, normal intervals, normal axis, nonspecific ST-T wave changes. Discharge Plan Discharge Patient Disposition: Admitted As Inpatient Clinical Impression: Acute exacerbation of congestive heart failure Condition: Stable Prescriptions: No Action Unable to Assess RF: 0 Referrals: Brooklyn Padilla MD [Primary Care Provider] - Coding Level of Care Code ED Inorganic Chemistry Teacher for Chg Fwd Exam Comprehensive
[2020-07-27 16:34] LABS: Hematocrit 32.5 % (42.0-52.0); Hemoglobin 9.7 g/dL (11.7-16.6); Mean Corpuscular HGB Conc 29.8 g/dL (30.0-36.0); Mean Corpuscular Hemoglobin 28.9 pg (28.0-34.0); Mean Corpuscular Volume 96.7 fL (80-94); Mean Platelet Volume 10.4 fL (7.4-10.4); Platelet Count 370 10^3/cmm (130-400); Red Blood Count 3.36 10^6/uL (4.1-5.3); Red Cell Distribution Width 16.4 % (12.1-15.1); White Blood Count 16.3 10^3/uL (4.0-10.0)
[2020-07-27 16:39] LABS: ABG PH Result 7.49 (7.35-7.45); Alveolar-Arterial Oxygen Gradi 12.2 mmHg (5-10); Arterial Blood Gas Hematocrit 28.1 % (42-52); Base Excess ABG 5.8 mmol/L (-2.0-2.0); Blood Gas Allen Test Pos; Blood Gas Operator Identificat BD; Blood Gas Sample Site Brachial, right; Blood Gas Sample Type Arterial; Carboxyhemoglobin 1.8 %THgb (0.4-20.1); HCO3 ABG 29.6 mmol/L (22-26); HGB O2 Sat 95.5 % (95-100); Ionized Calcium Level - ABG 1.1 mmol/L (1.1-1.4); Methemoglobin 0.8 % (0.4-1.5); Oxygen Device NC; PO2 ABG 86.9 mmHg (80.0-100.0); Potassium Level - ABG 4.7 mmol/L (3.5-5.0); Total Hemoglobin 9.2 g/dL (14-18)
[2020-07-27 16:50] LABS: Lactic Sepsis W/Reflex 1.8 mmol/L (0.5-2.2)
[2020-07-27 16:52] LABS: Troponin(5th) Baseline 33 ng/L (0-15)
[2020-07-27 16:53] LABS: INR 1.48 (0.8-1.2)
[2020-07-27 17:00] LABS: Alanine Aminotransferase 99 U/L (0-41); Albumin Level 3.5 g/dL (3.5-5.2); Alkaline Phosphatase 309 IU/L (40-130); Aspartate Amino Transferase 46 U/L (0-40); Blood Urea Nitrogen 20 mg/dL (8-23); Carbon Dioxide 27 mmol/L (22-29); Chloride 94 mmol/L (98-107); Creatine Phosphokinase 42 U/L (39-308); Globulin 2.8 g/dL (1.3-4.6); Glomerular Filtration Rate 56.3 mL/min (90-130); Glucose 102 mg/dL (65-115); Lipase 26 U/L (13-60); Magnesium 2.1 mg/dL (1.7-2.3); NT Pro B Type Natriuretic Pept 5814 pg/mL (0-125); Osmolality Calculated 279 mOsm/kg (285-295); Sodium 133 mmol/L (136-145); Total Bilirubin 0.5 mg/dL (0.15-1.2); Total Protein 6.3 g/dL (6.6-8.7)
[2020-07-27 17:02] LABS: Add Urine Microscopic? NO
[2020-07-27 17:08] LABS: Urine Appearance Clear (CLEAR); Urine Color Yellow (Yellow); pH Urine 5 (5-7)
[2020-07-27 17:09] LABS: Bilirubin Urine Neg (Negative); Blood Urine Neg (Negative); Glucose Urine UA Norm (Normal); Ketones Urine Negative (Negative); Leukocyte Esterase Urine Negative (Negative); Nitrate Urine Negative (Negative); Protein Urine Neg (Negative); Urobilinogen Urine Norm (Negative)
[2020-07-27 17:24] LABS: Slide Review Slide Review Perform
[2020-07-27 17:29] LABS: Absolute Eosinophils 0.3 10^3/cmm (0.0-0.7); Absolute Segmented Neutrophil 8.6 10/cmm (1.6-7.1); Band Neutrophils Absolute 1.6 10^3/cmm (0.0-1.2); Corrected White Blood Count 15.1 10^3/cmm (4.8-10.8); Eosinophils 2 %; Lymphocytes 26 %; Segmented Neutrophils 53 %; Total Cells Counted 100 (0-100)
[2020-07-27 17:30] LABS: Anisocytosis 1+; Poikilocytosis 1+; Polychromasia 1+
[2020-07-27 17:32] LABS: Absolute Neutrophil 10.3 10^3/cmm (1.4-6.5); Macrocytosis 1+; Platelet Estimate Normal (Normal)
[2020-07-27] MEDS: FUROsemide 10 mg/mL SDV 4mL 40 MG IVP (18:13)
--- NOTE | 2020-07-27 18:33 | P.HP_ITS ---
Providers/Chief Complaint Admitting Physician: Na Agee MD Primary Care Provider: Brooklyn Padilla MD Chief Complaint: HYPOXIA History of Present Illness Kulwant Bishop is a 60 year old male recently discharged from [facility] after management of cardiogenic shock, PCI of circumflex 07/23, reduced ejection fraction heart failure EF 25 to 30%, was discharged without any oxygen or Lasix came in today for worsening shortness of breath. At the other facility he was intubated for acute respiratory failure, he self extubated on 07/06, did not require reintubation, ICU course was complicated by severe ICU delirium. He required Precedex and antipsychotics for his hyperactive delirium. Paracentesis was unsuccessful, he was diagnosed with new onset diabetes A1c 6.6, he was recommended SNF placement which patient declined. He did not require oxygen at the time of discharge. Patient came to the emergency department 07/25 after experiencing orthopnea, PND and worsening of shortness of breath. He did not notice any fever, productive cough, dysuria change in bowel movements. He was admitted for CHF exacerbation but then left AMA the next morning as he was upset about his sheets not being changed when they were wet. Labs today notable for revealed leukocytosis, atrial fibrillation without RVR, anemia, elevated BNP, patient not complaining of any active chest pain/troponin mildly elevated, no ischemic or infarctive changes on EKG. Review of Systems General: Reports: 10 or more systems reviewed and unremarkable except in HPI and below Const: Denies: fever(s), chills or body aches Eyes: Denies: change in vision, blurry vision or photophobia ENMT: Reports: hoarseness; Denies: throat pain, enlarged tonsils, odynophagia or nasal congestion Card: Denies: chest pain, palpitations, irregular heart rhythm, edema, swelling of feet/ankles, lightheadedness, pre-syncope, dyspnea on exertion or orthopnea Resp: Denies: dyspnea, productive cough, non-productive cough, wheezing, stridor, pain on inspiration, change in phlegm color, hemoptysis or chest congestion GI: Denies: abdominal pain, nausea, vomiting, hematemesis, coffee ground emesis, dysphagia, heartburn, diarrhea, constipation, GI cramping, change in stool character, hematochezia or melena : Denies: flank pain, dysuria, urinary frequency, urinary urgency, urinary hesitancy or hematuria Musc: Denies: neck pain, back pain, extremity pain, joint swelling, joint warmth or deformity Neuro: Denies: headache(s), numbness in extremities, weakness in extremities, sensory changes, difficulty walking, frequent falls, dizziness, vertigo, behavioral changes, Slurred speech present or seizure-like activity Psych: Denies: anxiety, depression, suicidal ideation or homicidal ideation Endo: Denies: polyuria, polydipsia, tired all the time, cold intolerance or hot flashes Sukhjinder/Lymph: Denies: easy bruising or easy bleeding Medications/Allergies Home Medications Medication Instructions Recorded Confirmed Last Taken Type albuterol sulfate 2.5 mg INHALATION QID PRN 07/27/20 07/27/20 07/27/20 11:00 History amiodarone 400 mg PO BID 07/27/20 07/27/20 07/27/20 08:30 History apixaban [Eliquis] 5 mg PO BID 07/27/20 07/27/20 07/27/20 08:30 History aspirin 81 mg PO DAILY 07/27/20 07/27/20 07/26/20 History atorvastatin 40 mg PO QPM 07/27/20 07/27/20 07/26/20 History clopidogrel 75 mg PO DAILY 07/27/20 07/27/20 07/27/20 History lactulose [Constulose] 15 ml PO BID 07/27/20 07/27/20 07/26/20 History metoprolol tartrate 100 mg PO BID 07/27/20 07/27/20 07/27/20 08:30 History potassium chloride 40 meq PO DAILY 07/27/20 07/27/20 07/27/20 History 20 meq Allergies Allergy/AdvReac Type Severity Reaction Status Date / Time codeine Allergy Unknown Verified 07/27/20 17:57 PFSH Acute PFSH: Medical History Atrial fibrillation 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 Chronic anticoagulation Congestive heart failure Coronary artery disease DM type 2 (diabetes mellitus, type 2) Hypertension Surgical History Hx of colonoscopy Removal of polyp tubular adenoma S/P coronary artery stent placement Stented coronary artery Circumflex, 07/23 at [facility] Family History Father Chronic kidney disease (CKD) Social History Smoking and tobacco status: former smoker Quit status (tobacco): has quit using tobacco Former quit date comment: 2014 Alcohol intake: former Household members: spouse Housing: House Vitals/I&O/Wt Last Vital Signs Temp 98.9 F 07/27/20 15:43 Pulse 74 07/27/20 18:01 Resp 22 H 07/27/20 18:01 BP 145/89 07/27/20 18:01 Pulse Ox 100 07/27/20 18:01 Weight last 48 hrs Weight 129.274 kg Physical Exam Const: COMMON NORMALS: patient oriented x3 and alert Eye: COMMON NORMALS: Equal, round and reactive pupils present, EOMs intact bilaterally and conjunctivae normal Resp: AUSCULTATION: crackles, rales and wheezes Cardio: COMMON NORMALS: no JVD, regular rate, regular rhythm, S1 normal heart sound present, S2 normal heart sound present, No gallops present (Cardio), No clicks present (Cardio), No murmurs present (Cardio), No rub (Cardio) and Peripheral pulses 2+ throughout GI: COMMON NORMALS: Normal to inspection, nondistended, normoactive bowel sounds present, Soft to palpation, non-tender, No hepatosplenomegaly present, no masses and no bruits Neuro: COMMON NORMALS: patient oriented x3, CN's II-XII intact bilaterally, moves all extremities and no focal motor deficits Skin: COMMON NORMALS: no rashes or lesions noted and no wounds Data : 07/27/20 16:24 07/27/20 16:24 A&P Assessment and plan (1) Acute exacerbation of congestive heart failure: Status: Acute Qualifiers: Heart failure type: unspecified Qualified Code(s): I50.9 - Heart failure, unspecified (2) Newly diagnosed diabetes: Status: Acute (3) Acute respiratory failure with hypoxia: Status: Acute Additional A&P Information Admit to CSU # Acute exacerbation of reduced ejection fraction heart failure(EF 30%) Recent PCI at [facility] on 07/23 No active chest pain, no new changes on EKG lasix 40mg iv q12h I/O, daily weight Continue aspirin, Plavix, statin and metoprolol succinate supplemental 02 to keep sat >90% Duoneb q4h prn respiratory alkalosis from hyperventilation LFT elevation 2/2 congestive hepatopathy covid antigen negative from 07/25 reactive leukocytosis Afib currently rate controlled, continue eliquis Attestations Medical Necessity Statement*: observation, < 2midnight anticipated for management of CHF exacerbation Coding Level of Care Code Acute Front Office Associate for Vianca Fwd Diagnoses Acute exacerbation of congestive heart failure I50.9 Heart failure type: unspecified Newly diagnosed diabetes E11.9 Acute respiratory failure with hypoxia J96.01
--- NOTE | 2020-07-27 18:46 | PC.NURSE ---
Called Med Surg at 184 to call report on patient, on hold for 2 minutes, then told nurse was in a room and unable to take report at the moment at 184
[2020-07-27 19:23] LABS: Troponin 5 2HR 33.01 ng/L (0-15); Troponin 5 2HR Delta 0.01 ABS# (0-10)
[2020-07-27] MEDS: morphine 4 mg/mL SDV 1 mL IVP (20:53)
[2020-07-27 23:11] LABS: Troponin 5 6HR 41.65 ng/L (0-15); Troponin 5 6HR Delta 8.65 ng/L (0-12)
[2020-07-28] VITALS (10 sets, daily range): BP systolic 102–123; BP diastolic 69–80; PULSE 65–82; RESP 15–19; TEMP 36.3–37.3; O2SAT 83–97
[2020-07-28 05:34] LABS: Basophils # 0.1 10^3/uL (0.0-0.1); Basophils % 0.7 %; Eosinophils # 0.3 10^3/uL (0.0-0.8); Eosinophils % 1.8 %; Hematocrit 28.9 % (42.0-52.0); Hemoglobin 8.4 g/dL (11.7-16.6); Lymphocytes # 1.8 10^3/uL (0.8-4.8); Lymphocytes % 13.3 %; Mean Corpuscular HGB Conc 29.1 g/dL (30.0-36.0); Mean Corpuscular Hemoglobin 28.7 pg (28.0-34.0); Mean Corpuscular Volume 98.6 fL (80-94); Mean Platelet Volume 10.6 fL (7.4-10.4); Monocytes % 7.1 %; Neutrophils # 8.16 10^3/uL (1.8-7.7); Neutrophils % 60.3 %; Nucleated Red Blood Cells # 0.5 /100WBC; Nucleated Red Blood Cells % 3.6 %; Platelet Count 304 10^3/cmm (130-400); Red Blood Count 2.93 10^6/uL (4.1-5.3); Red Cell Distribution Width 16.4 % (12.1-15.1); White Blood Count 13.5 10^3/uL (4.0-10.0)
[2020-07-28 06:01] LABS: Anion Gap 15.3 (5-19); Blood Urea Nitrogen 18 mg/dL (8-23); Calcium 8.5 mg/dL (8.5-10.5); Carbon Dioxide 27 mmol/L (22-29); Chloride 98 mmol/L (98-107); Glomerular Filtration Rate 61.8 mL/min (90-130); Glucose 92 mg/dL (65-115); Osmolality Calculated 284 mOsm/kg (285-295); Potassium 4.3 mmol/L (3.5-5.1); Sodium 136 mmol/L (136-145)
[2020-07-28] MEDS: FUROsemide 10 mg/mL SDV 4mL 40 MG IVP (06:09)
[2020-07-28] MEDS: morphine 4 mg/mL SDV 1 mL IVP ×2 (06:12→21:00)
[2020-07-28 06:46] LABS: Slide Review Slide Review Perform
[2020-07-28] MEDS: clopidogrel 75 mg Tablet PO (08:32)
[2020-07-28] MEDS: amiodarone 200 mg Tablet 400 MG PO ×2 (08:32→17:22)
[2020-07-28] MEDS: metoprolol tartrate 50 mg Tablet 100 MG PO ×2 (08:32→17:22)
[2020-07-28] MEDS: apixaban 5 mg Tablet PO ×2 (08:32→17:22)
[2020-07-28] MEDS: aspirin 81 mg EC Tablet PO (08:32)
--- NOTE | 2020-07-28 10:22 | PC.CHAP ---
Pastoral Care Encounter/Spiritual Assessment Type of Contact [] Declined accounting file clerk visit [] Patient/Family/Request visit [] Outpatient visit [] Follow-up visit [] Physician referral [] Code/Alert [] Routine visit [] Staff referral [] Actively dying [x] Patient sleeping [] Family support [] [] Out of room [] Palliative care [] [] Receiving care in room [] Pre-surgical visit [] Trauma [] Long length of stay [] ICU visit [] Other: Relational/Emotional Strength [] Patient feels connected with others/family/visitors/staff [] Distress [] Loneliness/isolation [] Abandonment Spirituality of Patient [] Person of Linnea [] Attends Rastafari of their Linnea [] Believes in Prayer [] Reads Bible or Orthodoxy materials [] There are Spiritual issues to be addressed Pearl Stringer Interventions [] Prayer [] Active listening [] Non-anxious presence [] Spiritual/emotional support [] Crisis/trauma care [] Spiritual counseling [] Bereavement support [] Provided bereavement packet [] Provided Bible/devotional materials [] Provided toy/stuffed animal, coloring book to patient or family member [] Provided Communion [] Anointing/[place] [] Salvation [] Completed spiritual assessment [] Other: Impact on Illness or Injury [] Angry [] Fearful [] Anxious [] Often cries [] Exhaustion [] Unable to work [] Unable to attend lutheran [] Unable to walk/stand [] Unable to read [] Unable to drive [] Unable to eat/drink [] Unable to sleep [] Unable to be with family [] Patient intubated [] Other: Summary Patient was sleeping at the time of the accounting file clerk visit. Visit attempted by Pearl Stringer Get Brown. Time spent with patient 3 minutes
--- NOTE | 2020-07-28 16:32 | PC.NURSE ---
Home O2 evaluation completed and patient qualifies for 2 liters of oxygen for at home.
--- NOTE | 2020-07-28 17:13 | P.PN_ITS ---
Subjective Subjective: Interval history: The patient reports improved shortness of breath. Still requires supplemental oxygen. foam rubber curer have arranged home O2 for him. He also successfully passed physical therapy evaluation and was cleared for discharge to home with home PT. Denies any chest pain, cough, palpitations, nausea or vomiting, fever or chills. Medications: Reviewed: Yes Medication Review Details: Generic Name Dose Route Start Last Admin Trade Name Freq PRN Reason Stop Dose Admin Amiodarone HCl 400 mg 07/28/20 09:00 07/28/20 08:32 Cordarone PO 400 mg BID SAMIA Administration Apixaban 5 mg 07/28/20 09:00 07/28/20 08:32 Eliquis PO 5 mg BID SAMIA Administration Aspirin 81 mg 07/28/20 09:00 07/28/20 08:32 Aspirin Ec PO 81 mg DAILY SAMIA Administration Clopidogrel Bisulf ate 75 mg 07/28/20 09:00 07/28/20 08:32 Plavix PO 75 mg DAILY SAMIA Administration Metoprolol Tartrat e 100 mg 07/28/20 09:00 07/28/20 08:32 Lopressor PO 100 mg BID SAMIA Administration Morphine Sulfate 4 mg 07/27/20 19:22 07/28/20 06:12 Morphine IVP 4 mg Q4H PRN Administration SEVERE PAIN Vitals/I&O/Wt Last Vital Signs Temp 99.2 F 07/28/20 15:46 Pulse 75 07/28/20 15:46 Resp 16 07/28/20 15:46 BP 108/69 07/28/20 15:46 Pulse Ox 94 07/28/20 15:46 07/28/20 07/28/20 07/28/20 06:59 14:59 22:59 Intake Total 350 / 350 300 / 300 Output Total 1550 / 2500 1700 / 1700 350 / 2050 Balance -1200 / -2150 -1400 / -1400 -350 / -1750 Weight last 48 hrs Weight 129.274 kg Physical Exam Narrative: EXAM NARRATIVE: Awake alert oriented. No acute distress. Mood and affect are appropriate. Responses are adequate. Skin is warm and dry. Moist mucous membranes. Neck supple. No JVD Lungs clear. No respiratory distress at rest. Heart S1, S2, irregular Abdomen soft, nontender, bowel sounds are present Extremities bilateral pedal edema is present. No cyanosis no calf tenderness bilaterally Neuro examination is nonfocal Data : 07/28/20 05:05 07/28/20 05:05 A&P Assessment and plan (1) Acute exacerbation of congestive heart failure: Status: Acute Qualifiers: Heart failure type: unspecified Qualified Code(s): I50.9 - Heart failure, unspecified (2) Newly diagnosed diabetes: Status: Acute (3) Acute respiratory failure with hypoxia: Status: Acute Additional A&P Information Admit to CSU # Acute exacerbation of reduced ejection fraction heart failure(EF 30%) Recent PCI at [facility] on 07/23 No active chest pain, no new changes on EKG lasix 40mg iv q12h I/O, daily weight Continue aspirin, Plavix, statin and metoprolol succinate supplemental 02 to keep sat >90% Duoneb q4h prn respiratory alkalosis from hyperventilation LFT elevation 2/2 congestive hepatopathy covid antigen negative from 07/25 reactive leukocytosis Afib currently rate controlled, continue eliquis [place] Acute systolic congestive heart failure exacerbation. The patient was recently hospitalized at [facility] for cardiogenic shock and acute respiratory failure. Was intubated and extubated. According to him he was discharged in stable condition. Unclear what has precipitated his acute exacerbation. Review of systems reveals that he is not on any furosemide at home. He improved with IV diuresis. I will switch him to p.o. furosemide, continue metoprolol at slightly decreased dose and add oumou inhibitor to his regiment. We will request cardio consult. Possible discharge home tomorrow. History of atrial fibrillation. Currently rate controlled. He is on amiodarone and metoprolol. He is on Eliquis. Elevated troponin on presentation. Most likely secondary to #1. No chest pain. Improving. Continue aspirin and Plavix. He is also on atorvastatin. Anemia. Will monitor. Leukocytosis. Resolving without treatment. Doubt infection. QT prolongation on initial EKG. Currently resolved. Monitor and replace electrolytes. Mild acute kidney injury. Resolving. Monitor renal function. DVT prophylaxis. He is on Eliquis. Reported diabetes. Will check A1c level. Elevated LFTs. Probably secondary to #1. Will require outpatient monitoring. The plan of care was discussed with the patient, , multidisciplinary team. They verbalized understanding and agreement. Attestations Medical Necessity Statement*: Possible discharge home tomorrow. Coding Level of Care Code Acute Personal Care Aid for Chg Fwd Diagnoses Acute exacerbation of congestive heart failure I50.9 Heart failure type: unspecified Newly diagnosed diabetes E11.9 Acute respiratory failure with hypoxia J96.01
[2020-07-28] MEDS: atorvastatin 40 mg Tablet PO (17:22)
--- NOTE | 2020-07-28 18:02 | P.CONIM_ITS ---
Providers/Reason For Consult Consulting Physican/Specialty*: SARITA Valenzuela MD/cardiology Reason for Consult*: Patient with recurrent decompensated heart failure/severe LV systolic dysfunction Attending Physician: Vamshi Daniel Primary Care Provider: Brooklyn Padilla MD History of Present Illness History of Present Illness Kulwant Bishop is a 60 year old male , poor historian, is admitted to hospital through the emergency room, where he presented with complaints of recurrent worsening of shortness of breath/orthopnea. Patient was recently admitted to the [facility] in [place] for complaints of progressive shortness of breath. According to the patient, he had electrical cardioversion. He does not recall many of the events in the hospital. Based on the documentation in our hospital, he was in cardiogenic shock. He had to be intubated and had a prolonged hospital course. During the hospital stay, he developed ICU psychosis. He was initially intubated and then was extubated. He stayed in the hospital for almost 20 days. He underwent cardiac catheterization followed by PCI of the circumflex artery on 07/23/2020. 2 days after his hospital discharge, he ended up in our emergency room with complaints of progressive shortness of breath. He was admitted to our hospital at that time with a diagnosis of decompensated heart failure. Apparently the patient signed out AGAINST MEDICAL ADVICE on the following morning . According to him, he got upset because of the poor care that he received in the hospital. He came back for the second time yesterday with similar symptoms. He was finding it difficult to breathe and lie down. Did not have any chest pain or palpitations. No fever or chills. No significant cough. He had some swelling of the lower extremities. No other associated symptoms. Apparently he had a left ventricular ejection fraction 25 to 30% at the [facility]. Details are not available. He also was found to be anemic, features of acute kidney injury, elevated liver enzymes and some evidence of early diabetes. He was on ANGLE inhibitor during his first admission to this hospital. Because of the acute kidney injury, this was discontinued on the . This patient has no previous history for any coronary artery disease, myocardial infarction or congestive heart failure. 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 He did not seek any medical advice up until recently when he got acutely short of breath for which he ended up at the [facility] in [place]. According to him, he never had chest pain. He was tested for COVID -19 couple of times and was found to be negative Review of Systems Narrative: CONSTITUTIONAL: No fever or chills. EYES: No blurring of vision or other visual disturbances lately. ENT: Had some hoarseness of voice at the outside hospital, possibly secondary to from the intubation. No auditory disturbances or sore throat. CARDIOVASCULAR: As mentioned above. RESPIRATORY: As mentioned above. GASTROINTESTINAL: No hematemesis or melena. GENITOURINARY: No dysuria or hematuria. INTEGUMENTARY: No skin rashes or history of skin cancer. NEURO: No transient ischemic attacks or amaurosis. PSYCHIATRIC: Patient had ICU psychosis/delirium at the [facility] HEMATOLOGIC: Mild anemia and leukocytosis ENDOCRINE: New onset of diabetes MUSCULOSKELETAL: No recent joint pain or swelling. ALLERGY/IMMUNOLOGY: As mentioned above. Meds/Allergies Home Medications and Allergies Home Medications Medication Instructions Recorded Confirmed Last Taken Type albuterol sulfate 2.5 mg INHALATION QID PRN 07/27/20 07/27/20 07/27/20 11:00 History amiodarone 400 mg PO BID 07/27/20 07/27/20 07/27/20 08:30 History apixaban [Eliquis] 5 mg PO BID 07/27/20 07/27/20 07/27/20 08:30 History aspirin 81 mg PO DAILY 07/27/20 07/27/20 07/26/20 History atorvastatin 40 mg PO QPM 07/27/20 07/27/20 07/26/20 History clopidogrel 75 mg PO DAILY 07/27/20 07/27/20 07/27/20 History lactulose [Constulose] 15 ml PO BID 07/27/20 07/27/20 07/26/20 History metoprolol tartrate 100 mg PO BID 07/27/20 07/27/20 07/27/20 08:30 History potassium chloride 40 meq PO DAILY 07/27/20 07/27/20 07/27/20 History 20 meq Allergies Allergy/AdvReac Type Severity Reaction Status Date / Time codeine Allergy Unknown Verified 07/27/20 17:57 Current Medications Current Medications Generic Name Dose Route Start Last Admin Trade Name Freq PRN Reason Stop Dose Admin Amiodarone HCl 400 mg 07/28/20 09:00 07/28/20 17:22 Cordarone PO 400 mg BID SAMIA Administration Apixaban 5 mg 07/28/20 09:00 07/28/20 17:22 Eliquis PO 5 mg BID SAMIA Administration Aspirin 81 mg 07/28/20 09:00 07/28/20 08:32 Aspirin Ec PO 81 mg DAILY SAMIA Administration Atorvastatin Calcium 40 mg 07/28/20 18:00 07/28/20 17:22 Lipitor PO 40 mg QPM SAMIA Administration Clopidogrel Bisulfate 75 mg 07/28/20 09:00 07/28/20 08:32 Plavix PO 75 mg DAILY SAMIA Administration Morphine Sulfate 4 mg 07/27/20 19:22 07/28/20 06:12 Morphine IVP 4 mg Q4H PRN Administration SEVERE PAIN PFSH Acute PFSH: Medical History ACC/AHA stage C congestive heart failure due to ischemic cardiomyopathy Acute on chronic systolic heart failure Atherosclerosis of coronary artery of [place] heart without angina pectoris Atrial fibrillation 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 Cardiomyopathy Chronic anticoagulation Congestive heart failure Coronary artery disease DM type 2 (diabetes mellitus, type 2) Hypertension Intermittent atrial fibrillation Surgical History Hx of colonoscopy Removal of polyp tubular adenoma S/P coronary artery stent placement Stented coronary artery Circumflex, 07/23 at [facility] Family History Father Chronic kidney disease (CKD) Social History Smoking and tobacco status: former smoker Quit status (tobacco): has quit using tobacco Former quit date comment: 2014 Alcohol intake: former Household members: spouse Housing: House Vitals/I&O/Wt Last Vital Signs Temp 99.2 F 07/28/20 15:46 Pulse 75 07/28/20 15:46 Resp 16 07/28/20 15:46 BP 108/69 07/28/20 15:46 Pulse Ox 94 07/28/20 15:46 07/28/20 07/28/20 07/28/20 06:59 14:59 22:59 Intake Total 350 / 350 300 / 300 Output Total 1550 / 2500 1700 / 1700 350 / 2050 Balance -1200 / -2150 -1400 / -1400 -350 / -1750 Weight last 48 hrs Weight 285 lb Physical Exam Narrative: EXAM NARRATIVE: GENERAL: The patient is alert and oriented times three. Not in any acute distress. HEENT: No significant pallor, icterus or lymphadenopathy. The pupils are reactant to light. Oral cavity: There are no mucous membrane lesions. Funduscopic fundus is not visualized NECK: Trachea appears to be central. No masses noted. No JVD or thyromegaly appreciated. No carotid bruit. RESPIRATORY: Chest is symmetrical. No intercostals muscle retraction or any accessory muscle activation. There is no chest wall tenderness. Breath sounds are heard bilaterally. Slightly diminished intensity of breath sounds at the bases. BREASTS: Deferred. HEART: The PMI could not be palpated. No other palpable precordial events. First and second heart sounds are normal. No S3. Short systolic murmur in the lower sternal border. No diastolic murmurs. ABDOMEN: No vessel pulsations or distention. No tenderness. No organomegaly appreciated. No abdominal bruit. Bowel sounds are normally heard. : Deferred. RECTAL: Deferred. Extremities :1-2+ edema both lower extremities. No cyanosis. MUSCULOSKELETAL: Gait is normal. There is no joint deformity or swelling noted. No joint tenderness or any effusion. The shoulder and hip joints appear to have normal range of motion. SKIN: There are no significant scars or skin rash noted. NEUROPSYCHIATRIC: The patient is alert and oriented x3. He is not able to recall the details of the ICU admission at [facility] of the hospital appears to be in a good mood. The higher functions are grossly within normal limits. No tremors or rigidity noted. Data Labs: Other Labs: Laboratory Last Values WBC 13.5 10^3/uL (4.0 -10.0) H 07/28/20 05:05 Corrected WBC 15.1 10^3/cmm (4. 8-10.8) H 07/27/20 16:24 RBC 2.93 10^6/uL (4.1 -5.3) L 07/28/20 05:05 Hgb 8.4 g/dL (11.7-16 .6) L 07/28/20 05:05 Hct 28.9 % (42.0-52.0 ) L 07/28/20 05:05 MCV 98.6 fL (80-94) H 07/28/20 05:05 MCH 28.7 pg (28.0-34. 0) 07/28/20 05:05 MCHC 29.1 g/dL (30.0-3 6.0) L 07/28/20 05:05 RDW 16.4 % (12.1-15.1 ) H 07/28/20 05:05 Plt Count 304 10^3/cmm (130 -400) 07/28/20 05:05 MPV 10.6 fL (7.4-10.4 ) H 07/28/20 05:05 Neut % (Auto) 60.3 % 07/28/20 05:05 Lymph % (Auto) 13.3 % 07/28/20 05:05 [place] % (Auto) 7.1 % 07/28/20 05:05 Eos % (Auto) 1.8 % 07/28/20 05:05 Baso % (Auto) 0.7 % 07/28/20 05:05 Neut # (Auto) 8.16 10^3/uL (1.8 -7.7) H 07/28/20 05:05 Lymph # (Auto) 1.8 10^3/uL (0.8- 4.8) 07/28/20 05:05 [place] # (Auto) 1.0 10^3/uL (0.2- 0.9) H 07/28/20 05:05 Eos # (Auto) 0.3 10^3/uL (0.0- 0.8) 07/28/20 05:05 Baso # (Auto) 0.1 10^3/uL (0.0- 0.1) 07/28/20 05:05 Nucleated RBC % (a uto) 3.6 % 07/28/20 05:05 Total Counted 100 (0-100) 07/27/20 16:24 Absolute Neutrophi ls 10.3 10^3/cmm (1. 4-6.5) H 07/27/20 16:24 Segmented Neutroph ils 53 % 07/27/20 16:24 Abs Segm Neuts (Ma n) 8.6 10/cmm (1.6-7 .1) H 07/27/20 16:24 Band Neutrophils 10.0 % 07/27/20 16:24 Abs Band Neuts (Ma n) 1.6 10^3/cmm (0.0 -1.2) H 07/27/20 16:24 Lymphocytes (Manua l) 26 % 07/27/20 16:24 Monocytes (Manual) 6.0 % 07/27/20 16:24 Absolute Monocytes 1.0 10^3/cmm (0.1 -0.6) H 07/27/20 16:24 Eosinophils (Manua l) 2 % 07/27/20 16:24 Absolute Eosinophi ls 0.3 10^3/cmm (0.0 -0.7) 07/27/20 16:24 Metamyelocytes 3.0 % 07/27/20 16:24 Nucleated RBCs 8.0 /100WBC (0-1) H 07/27/20 16:24 Nucleated RBCs # 0.5 /100WBC 07/28/20 05:05 Platelet Estimate Normal (Normal) 07/27/20 16:24 Polychromasia 1+ H 07/27/20 16:24 Poikilocytosis 1+ H 07/27/20 16:24 Anisocytosis 1+ H 07/27/20 16:24 Macrocytosis 1+ H 07/27/20 16:24 PT 18.40 SECONDS (12 .1-14.9) H 07/27/20 16:24 INR 1.48 (0.8-1.2) H 07/27/20 16:24 Specimen Type Arterial 07/27/20 16:30 Sample Site Brachial, right 07/27/20 16:30 ABG pH 7.49 (7.35-7.45) H 07/27/20 16:30 ABG pCO2 39.0 mmHg (35-45) 07/27/20 16:30 ABG pO2 86.9 mmHg (80.0-1 00.0) 07/27/20 16:30 ABG HCO3 29.6 mmol/L (22-2 6) H 07/27/20 16:30 ABG O2 Saturation 98.0 07/27/20 16:30 ABG Base Excess 5.8 mmol/L (-2.0- 2.0) H 07/27/20 16:30 [place]eto Test Pos 07/27/20 16:30 A-a O2 Gradient 12.2 mmHg (5-10) H 07/27/20 16:30 Hematocrit 28.1 % (42-52) L 07/27/20 16:30 Hgb O2 Saturation 95.5 % (95-100) 07/27/20 16:30 Carboxyhemoglobin 1.8 %THgb (0.4-20 .1) 07/27/20 16:30 Methemoglobin 0.8 % (0.4-1.5) 07/27/20 16:30 Total Hemoglobin 9.2 g/dL (14-18) L 07/27/20 16:30 Sodium 134.0 mmol/L (131 -143) 07/27/20 16:30 Potassium 4.7 mmol/L (3.5-5 .0) 07/27/20 16:30 Glucose 103.0 mg/dL (70-1 15) 07/27/20 16:30 Ionized Calcium 1.1 mmol/L (1.1-1 .4) 07/27/20 16:30 O2 Delivery Device Nc 07/27/20 16:30 O2 Liters/Min 3.0 % 07/27/20 16:30 FiO2 32.0 % 07/27/20 16:30 Marble Machine Tender ID Bd 07/27/20 16:30 Sodium 136 mmol/L (136-1 45) 07/28/20 05:05 Potassium 4.3 mmol/L (3.5-5 .1) 07/28/20 05:05 Chloride 98 mmol/L (98-107 ) 07/28/20 05:05 Carbon Dioxide 27 mmol/L (22-29) 07/28/20 05:05 Anion Gap 15.3 (5-19) 07/28/20 05:05 BUN 18 mg/dL (8-23) 07/28/20 05:05 Creatinine 1.2 mg/dL (0.7-1. 2) 07/28/20 05:05 GFR Calculation 61.8 mL/min (90-1 30) L 07/28/20 05:05 Glucose 92 mg/dL (65-115) 07/28/20 05:05 Calculated Osmolal ity 284 mOsm/kg (285- 295) L 07/28/20 05:05 Lactic Acid 1.8 mmol/L (0.5-2 .2) 07/27/20 16:24 Calcium 8.5 mg/dL (8.5-10 .5) 07/28/20 05:05 Magnesium 2.1 mg/dL (1.7-2. 3) 07/27/20 16:24 Total Bilirubin 0.5 mg/dL (0.15-1 .2) 07/27/20 16:24 AST 46 U/L (0-40) H 07/27/20 16:24 ALT 99 U/L (0-41) H 07/27/20 16:24 Alkaline Phosphata se 309 IU/L (40-130) H 07/27/20 16:24 Creatine Kinase 42 U/L (39-308) 07/27/20 16:24 Troponin T Baselin e 33 ng/L (0-15) H 07/27/20 16:24 Troponin T 120 Min brigido 33.01 ng/L (0-15) H 07/27/20 18:54 Delta Troponin T 0.01 ABS# (0-10) 07/27/20 18:54 Troponin T Hi Sens 6Hr 41.65 ng/L (0-15) H 07/27/20 22:30 Troponin T Hi Sens 6Hr Delta 8.65 ng/L (0-12) 07/27/20 22:30 NT-Pro-B Natriuret Pep 5814 pg/mL (0-125 ) H 07/27/20 16:24 Total Protein 6.3 g/dL (6.6-8.7 ) L 07/27/20 16:24 Albumin 3.5 g/dL (3.5-5.2 ) 07/27/20 16:24 Globulin 2.8 g/dL (1.3-4.6 ) 07/27/20 16:24 Lipase 26 U/L (13-60) 07/27/20 16:24 Urine Color Yellow (Yellow) 07/27/20: Urine Appearance Clear (CLEAR) 07/27/20 16:27 Urine pH 5 (5-7) 07/27/20 16:27 Ur Specific Gravit y 1.010 (1.005-1.0 30) 07/27/20 16: Urine Protein Neg (Negative) 07/27/20 16:27 Urine Glucose (UA) Norm (Normal) 07/27/20 16:27 Urine Ketones Negative (Negati ve) 07/27/20 16:27 Urine Blood Neg (Negative) 07/27/20 16:27 Urine Nitrate Negative (Negati ve) 07/27/20 16:27 Urine Bilirubin Neg (Negative) 07/27/20 16:27 Urine Urobilinogen Norm mg/dL (Negat steven) 07/27/20 16:27 Ur Leukocyte Ivon ase Negative (Negati ve) 07/27/20 16:27 Chest x-ray Revealed cardiomegaly with pulmonary venous congestion. EKG Revealed sinus rhythm with nonspecific ST changes in the anterolateral leads. Nonspecific intraventricular conduction delay A&P Assessment and plan (1) Acute on chronic systolic heart failure: Patient apparently was found to have severe LV systolic dysfunction at the [facility]. His current ejection fraction is not known. We may go ahead and do a repeat echocardiogram, to reevaluate the LV ejection fraction. In the meanwhile, we will try to optimize his afterload reducing agents. Status: Acute (2) Atherosclerosis of coronary artery of [place] heart without angina pectoris: Apparently the patient had PCI of the circumflex artery at the [facility] on 07/23/2020. Details are not available. We will try to get the medical records. He is on Plavix at this time. Status: Acute (3) ACC/AHA stage C congestive heart failure due to ischemic cardiomyopathy: Clinically seems to be getting compensated. We will try to optimize the diuretic dose. Status: Acute (4) Intermittent atrial fibrillation: Patient pacer intermittent atrial fibrillation. Based on the history, he had electrical cardioversion at the [facility]. Because of the elevated liver enzymes, I may cut back on the dose of the amiodarone to 400 mg p.o. daily. We do not know exactly as to how long he has been on the amiodarone at the current dose. Status: Acute Additional A&P Information Leukocytosis, etiology? Status post acute kidney injury Elevated liver enzymes Anemia Recently diagnosed diabetes After reviewing the medical records and also the echocardiogram, further recommendations will be made. Thank you for the opportunity to eval this patient make these recommendations. Coding Level of Care Code Acute Assembly Supervisor for Vianca Maloney Diagnoses Acute on chronic systolic heart failure I50.23 Atherosclerosis of coronary artery of [place] heart without angina pectoris I25.10 ACC/AHA stage C congestive heart failure due to ischemic cardiomyopathy I50.9; I25.5 Intermittent atrial fibrillation I48.0
[2020-07-29] VITALS (8 sets, daily range): BP systolic 100–135; BP diastolic 64–83; PULSE 65–82; RESP 17–20; TEMP 36.4–37.1; O2SAT 92–98
[2020-07-29 05:58] LABS: Albumin Level 3.5 g/dL (3.5-5.2); Anion Gap 13.2 (5-19); Blood Urea Nitrogen 16 mg/dL (8-23); Calcium 8.3 mg/dL (8.5-10.5); Carbon Dioxide 34 mmol/L (22-29); Chloride 94 mmol/L (98-107); Glomerular Filtration Rate 76.2 mL/min (90-130); Glucose 97 mg/dL (65-115); Phosphorus 4.1 mg/dL (2.5-4.5); Potassium 4.2 mmol/L (3.5-5.1); Sodium 137 mmol/L (136-145)
[2020-07-29 06:45] LABS: Estmated Average Glucose 140; Hemoglobin A1C 6.5 % (4.0-6.0)
[2020-07-29 07:13] LABS: Basophils # 0.1 10^3/uL (0.0-0.1); Basophils % 0.6 %; Eosinophils # 0.3 10^3/uL (0.0-0.8); Eosinophils % 2.3 %; Hemoglobin 9.4 g/dL (11.7-16.6); Lymphocytes # 1.7 10^3/uL (0.8-4.8); Mean Corpuscular HGB Conc 30.3 g/dL (30.0-36.0); Mean Corpuscular Hemoglobin 29.1 pg (28.0-34.0); Mean Platelet Volume 10.7 fL (7.4-10.4); Monocytes # 0.8 10^3/uL (0.2-0.9); Monocytes % 5.8 %; Neutrophils # 9.02 10^3/uL (1.8-7.7); Nucleated Red Blood Cells # 0.3 /100WBC; Platelet Count 358 10^3/cmm (130-400); Red Blood Count 3.23 10^6/uL (4.1-5.3); Red Cell Distribution Width 16.9 % (12.1-15.1); White Blood Count 13.9 10^3/uL (4.0-10.0)
[2020-07-29 07:27] LABS: Slide Review Slide Review Perform
[2020-07-29] MEDS: losartan 50 mg Tablet 25 MG PO (08:15)
[2020-07-29] MEDS: amiodarone 200 mg Tablet 400 MG PO (08:16)
[2020-07-29] MEDS: clopidogrel 75 mg Tablet PO (08:17)
[2020-07-29] MEDS: FUROsemide 40 mg Tablet PO (08:17)
[2020-07-29] MEDS: aspirin 81 mg EC Tablet PO (08:17)
[2020-07-29] MEDS: apixaban 5 mg Tablet PO (08:17)
[2020-07-29] MEDS: metoprolol tartrate 50 mg Tablet 75 MG PO (08:20)
--- NOTE | 2020-07-29 09:07 | P.PN_ITS ---
Subjective Subjective: Interval history: Patient is feeling better. He has been ambulating on telemetry. Still has significant dyspnea on exertion. No orthopnea or PND. Denies any fever or chills. No significant cough. He had the echocardiogram today. He was found to have LV ejection fraction 40%. He also was found to have moderately severe mitral regurgitation. Multiple wall motion normalities were present. Medications: Reviewed: Yes Medication Review Details: Current Medications Acetaminophen (Tylenol) 650 mg PO Q6H PRN PRN Reason: Mild/Mod Pain Or Temp >/= 101 Albuterol/Ipratropium (Duoneb) 3 ml INHALATION Q4H PRN PRN Reason: SHORTNESS OF BREATH Amiodarone HCl (Cordarone) 400 mg PO DAILY [facility] Last Admin: 07/29/20 08:16 Dose: 400 mg Documented by: Apixaban (Eliquis) 5 mg PO BID [facility] Last Admin: 07/29/20 08:17 Dose: 5 mg Documented by: Aspirin (Aspirin Ec) 81 mg PO DAILY [facility] Last Admin: 07/29/20 08:17 Dose: 81 mg Documented by: Atorvastatin Calcium (Lipitor) 40 mg PO QPM [facility] Last Admin: 07/28/20 17:22 Dose: 40 mg Documented by: Clopidogrel Bisulfate (Plavix) 75 mg PO DAILY [facility] Last Admin: 07/29/20 08:17 Dose: 75 mg Documented by: Dextrose (D50w) 25 ml IVP ONCE PRN; Protocol PRN Reason: hypoglycemia protocol Dextrose (D50w) 50 ml IVP PRN PRN; Protocol PRN Reason: hypoglycemia protocol Furosemide (Lasix) 40 mg PO BID@,16 [facility] Last Admin: 07/29/20 08:17 Dose: 40 mg Documented by: Glucagon (Glucagen) 1 mg IM ONCE PRN; Protocol PRN Reason: Adult Acute Hypoglycemia Prot. Dextrose (D5w) 500 mls @ 100 mls/hr IV ONCE PRN; Protocol PRN Reason: Adult Acute Hypoglycemia Prot Insulin Aspart (Novolog) 0 unit SUBCUT TIDWM SAMIA; Protocol Insulin Aspart (Novolog) 0 unit SUBCUT BEDTIME SAMIA; Protocol Lactulose (Constulose) 15 gm PO BID PRN PRN Reason: constipation Losartan Potassium (Cozaar) 25 mg PO DAILY [facility] Last Admin: 07/29/20 08:15 Dose: 25 mg Documented by: Metoprolol Tartrate (Lopressor) 75 mg PO BID [facility] Last Admin: 07/29/20 08:20 Dose: 75 mg Documented by: Morphine Sulfate (Morphine) 0 mg IVP Q4H PRN PRN Reason: SEVERE PAIN Last Admin: 07/28/20 21:00 Dose: 2 mg Documented by: Ondansetron HCl (Zofran) 4 mg IVP Q6H PRN PRN Reason: NAUSEA AND VOMITING Sitagliptin Phosphate (Januvia) 50 mg PO DAILY [facility] Vitals/I&O/Wt Last Vital Signs Temp 97.7 F 07/29/20 08:00 Pulse 82 07/29/20 09:02 Resp 17 07/29/20 09:02 BP 135/83 07/29/20 08:15 Pulse Ox 92 07/29/20 09:02 07/28/20 07/29/20 07/29/20 22:59 06:59 14:59 Intake Total 700 / 1000 360 / 1360 Output Total 1550 / 3250 300 / 3550 Balance -850 / -2250 60 / -2190 Weight last 48 hrs Weight 276 lb 3.2 oz Weight 285 lb Physical Exam Narrative: EXAM NARRATIVE: GENERAL: The patient is alert and oriented times three. Not in any acute distress. HEENT: No significant pallor, icterus or lymphadenopathy. NECK: Trachea appears to be central. No masses noted. No JVD or thyromegaly appreciated. No carotid bruit. RESPIRATORY: Chest is symmetrical. No intercostals muscle retraction or any accessory muscle activation. There is no chest wall tenderness. Breath sounds are heard bilaterally. Slightly diminished intensity of breath sounds at the bases. BREASTS: Deferred. HEART: The PMI could not be palpated. No other palpable precordial events. First and second heart sounds are normal. No S3. Systolic murmur grade 3/6 in the mitral area. ABDOMEN: No vessel pulsations or distention abdomen is obese. No tenderness. No organomegaly appreciated. No abdominal bruit. Bowel sounds are normally heard. : Deferred. RECTAL: Deferred. Extremities : 1+ edema both lower extremities. No cyanosis. MUSCULOSKELETAL: No acute joint deformities or swelling SKIN: There are no significant scars or skin rash noted. NEUROPSYCHIATRIC: The patient is alert and oriented x3. He is not able to recall the details of the ICU admission at [place] of the hospital appears to be in a good mood. The higher functions are grossly within normal limits. No tremors or rigidity noted. Data : 07/29/20 04:59 07/29/20 04:59 A&P Assessment and plan (1) Mitral valve regurgitation: Patient may benefit from a transesophageal echocardiogram, to better evaluate the mitral valve and the regurgitation. This was discussed with the patient. Status: Acute Qualifiers: Cardiac valve disease etiology: nonrheumatic Qualified Code(s): I34.0 - Nonrheumatic mitral (valve) insufficiency (2) Acute on chronic systolic heart failure: Patient seems to have some improvement in the LV systolic function. He was started on Entresto. Patient seems to be tolerating the medication so far well. Advised to continue on the current dose. Status: Acute (3) Atherosclerosis of coronary artery of [place] heart without angina pectoris: Apparently the patient had PCI of the circumflex artery at the [facility] on 07/23/2020. Details are not available. We will try to get the medical records. He is on Plavix at this time. Status: Acute Qualifiers: Coronary Disease-Associated Artery/Lesion type: [place] artery Qualified Code(s): I25.10 - Atherosclerotic heart disease of [place] coronary artery without angina pectoris (4) ACC/AHA stage C congestive heart failure due to ischemic cardiomyopathy: Since LV ejection fraction appears to have improved, patient may not require a LifeVest at this time. Advised to continue the current medications. We still have not received the medical records from [place]. We will continue to try getting those records. Status: Acute (5) Intermittent atrial fibrillation: Patient is on amiodarone. May continue on the current dose of the medications. Status: Acute Additional A&P Information Leukocytosis, etiology? Status post acute kidney injury Elevated liver enzymes Anemia Recently diagnosed diabetes After reviewing the medical records and also the echocardiogram, further recommendations will be made. Thank you for the opportunity to eval this patient make these recommendations. Attestations Medical Necessity Statement*: Disposition as per the primary Coding Level of Care Code Acute Refractory Products Supervisor for Vianca Amara Diagnoses Mitral valve regurgitation I34.0 Cardiac valve disease etiology: nonrheumatic Acute on chronic systolic heart failure I50.23 Atherosclerosis of coronary artery of [place] heart without angina pectoris I25.10 Coronary Disease-Associated Artery/Lesion type: [place] artery ACC/AHA stage C congestive heart failure due to ischemic cardiomyopathy I50.9; I25.5 Intermittent atrial fibrillation I48.0 Hyperkalemia E87.5
[2020-07-29 09:26] LABS: Procalcitonin 0.19 ng/mL (0-0.5)
[2020-07-29 11:52] LABS: Glucose Point of Care 84 mg/dL (70-110)
--- NOTE | 2020-07-29 15:12 | P.DS_ITS ---
Discharge Providers Date of Admission: 07/27/20 17:39 Date of Discharge: July 29, 2020 Attending Provider at Admission: Na Agee MD Attending Provider at Discharge: Vamshi Daniel Primary Care Provider: Brooklyn Padilla MD Diagnoses at Discharge Discharge Diagnosis (1) Acute on chronic systolic heart failure: Status: Acute (2) Atherosclerosis of coronary artery of [place] heart without angina pectoris: Status: Acute (3) ACC/AHA stage C congestive heart failure due to ischemic cardiomyopathy: Status: Acute (4) Intermittent atrial fibrillation: Status: Acute Reason for Visit Reason for Visit: HYPOXIA Hospital Course Discharge Summary: Discharge diagnoses and problem list Acute systolic congestive heart failure exacerbation. The patient was recently hospitalized at [facility] for cardiogenic shock and acute respiratory failure. Was intubated and extubated. According to him he was discharged in stable condition. Unclear what has precipitated his acute exacerbation. Review of medication reveals that he is not on any furosemide at home. However, he improved with IV diuresis. Echo revealed EF of 40%. Today he was cleared by Dr. Valenzuela for discharge. He recommended to continue current medications. The patient will continue close follow-up with Dr. Valenzuela and with his primary care physician. We discussed his diet and fluid restrictions. We discussed exercise. We discussed his discharge medications. He was also instructed to come to emergency room if he develops any new shortness of breath, chest pain, cough, weakness or dizziness, lightheadedness, fever or chills, or any other new complaints. He verbalized understanding and agreement. Currently he feels significantly better and is eager to go home. History of atrial fibrillation. Currently rate controlled. He is on amiodarone and metoprolol. He is on Eliquis. Elevated troponin on presentation. Most likely secondary to #1. No chest pain. Improving. Continue aspirin and Plavix. He is also on atorvastatin. Anemia. Will monitor. Stable. Leukocytosis. Resolving without treatment. Doubt infection. I suspect that at some point during his previous hospitalizations or ER visits he received steroids. His procalcitonin level is not elevated. Recheck CBC in 1 week with the primary care physician. QT prolongation on initial EKG. Currently resolved. Monitor and replace electrolytes. Mild acute kidney injury. Resolving. Monitor renal function. DVT prophylaxis. He is on Eliquis. Reported diabetes. A1c level is slightly elevated. Starting him on Januvia small dose. He was informed about this. He will continue follow-up with his primary care physician. Elevated LFTs. Probably secondary to #1. Will require outpatient monitoring. The plan of care was discussed with the patient, multidisciplinary team. They verbalized understanding and agreement. Physical Exam Narrative: EXAM NARRATIVE: Awake alert oriented. No acute distress. Mood and affect are appropriate. Responses are adequate. Skin is warm and dry. Moist mucous membranes. Neck supple. No JVD Lungs clear. No respiratory distress at rest. Heart S1, S2, irregular Abdomen soft, nontender, bowel sounds are present Extremities bilateral pedal edema is present. No cyanosis no calf tenderness bilaterally Neuro examination is nonfocal Discharge Data Data Completed and Pending: Completed Studies During Hospitalization Category Date Time Status XR chest 1V crissy ble [id number] Stat Exams 07/27/20 15:40 Completed CV echo complete* [id number] Routine Ultrasound 07/29/20 19:34 Completed Pending at discharge Category Date Time Status Complete Blood Co unt w/Auto AM LABS Lab 07/30/20 04:00 Ordered Magnesium AM LABS Lab 07/30/20 04:00 Ordered Renal Function Pa donato AM LABS Lab 07/30/20 04:00 Ordered Labs from last 24 hours 07/29/20 07/29/20 07/29/20 11:37 04:59 04:59 WBC RBC Hgb Hct MCV MCH MCHC RDW Plt Count MPV Neut % (Auto) Lymph % (Auto) [place] % (Auto) Eos % (Auto) Baso % (Auto) Neut # (Auto) Lymph # (Auto) [place] # (Auto) Eos # (Auto) Baso # (Auto) Nucleated RBC % (a uto) Nucleated RBCs # Sodium Potassium Chloride Carbon Dioxide Anion Gap BUN Creatinine GFR Calculation Glucose POC Glucose 84 Estimat Average Gl ucose 140 Hemoglobin A1c 6.5 H Calcium Phosphorus Magnesium Albumin Procalcitonin 0.19 07/29/20 07/29/20 07/29/20 04:59 04:59 04:59 WBC 13.9 H RBC 3.23 L Hgb 9.4 L Hct 31.0 L MCV 96.0 H MCH 29.1 MCHC 30.3 RDW 16.9 H Plt Count 358 MPV 10.7 H Neut % (Auto) 65.0 Lymph % (Auto) 12.0 [place] % (Auto) 5.8 Eos % (Auto) 2.3 Baso % (Auto) 0.6 Neut # (Auto) 9.02 H Lymph # (Auto) 1.7 [place] # (Auto) 0.8 Eos # (Auto) 0.3 Baso # (Auto) 0.1 Nucleated RBC % (a uto) 2.0 Nucleated RBCs # 0.3 Sodium 137 Potassium 4.2 Chloride 94 L Carbon Dioxide 34 H Anion Gap 13.2 BUN 16 Creatinine 1.0 GFR Calculation 76.2 L Glucose 97 POC Glucose Estimat Average Gl ucose Hemoglobin A1c Calcium 8.3 L Phosphorus 4.1 Magnesium 2.0 Albumin 3.5 Procalcitonin Vitals: Last Vital Signs Temp 97.9 F 07/29/20 12:00 Pulse 66 07/29/20 12:00 Resp 20 H 07/29/20 12:00 BP 100/66 07/29/20 12:00 Pulse Ox 96 07/29/20 12:00 Discharge Plan Discharge Patient Disposition: Home Condition: Stable Prescriptions: New furosemide 40 mg Tablet 40 mg PO BID@,16 Qty: 60 RF: 0 metoprolol tartrate 50 mg Tablet 75 mg PO BID Qty: 90 RF: 0 Januvia 100 mg Tablet 50 mg PO DAILY Qty: 30 RF: 0 Entresto 24-26 mg Tablet 1 ea PO BID Qty: 60 RF: 0 Continued atorvastatin 40 mg tablet 40 mg PO QPM RF: 0 albuterol sulfate 2.5 mg /3 mL (0.083 %) solution for nebulization 2.5 mg inhalation QID PRN (Reason: Wheezing) RF: 0 amiodarone 200 mg tablet 400 mg PO BID RF: 0 clopidogrel 75 mg tablet 75 mg PO DAILY RF: 0 aspirin 81 mg Tablet,Delayed Release (Dr/Ec) 81 mg PO DAILY RF: 0 Constulose 10 gram/15 mL solution 15 ml PO BID RF: 0 Eliquis 5 mg tablet 5 mg PO BID RF: 0 Discontinued metoprolol tartrate 100 mg tablet 100 mg PO BID RF: 0 potassium chloride 20 mEq tablet,ER particles/crystals 40 meq PO DAILY RF: 0 Discharge Orders: Discharge Order (Routine); Ordered 07/29/20 Ordered By: Vamshi Daniel Other Ambulatory Orders: Basic Metabolic Panel (Routine) Timeframe: 1 Week Facility: [facility] - Location: Lab - Main Lab Ordered By: Vamshi Daniel Complete Blood Count w/Auto (Routine) Timeframe: 1 Week Location: Determined by Patient Ordered By: Vamshi Daniel DME: Oxygen (Order) Location: None Selected Ordered By: Vamshi Daniel Referrals: Brooklyn Padilla MD [Primary Care Provider] - Thor Valenzuela MD [Physician] - 1 week Kristyn Warren MD [Physician] - 7-10 days (possible sleep apnea?) Discharge Diet: As Directed and Cardiac Discharge Activity: Increase activity as tolerated Patient Instructions: Heart Failure (DC), Diabetes Mellitus Type 2 in Adults (DC) Discharge Attestations Time Spent in Discharge Care*: greater than 30 min Quality Metrics Clinical Quality Measures During this hospital stay, did patient experience: None Coding Level of Care Code 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
--- NOTE | 2020-07-29 16:20 | PC.NURSE ---
Patient discharge reviewed with patient and at this time. Patient and verbalized understanding of discharge instructions including medications and follow up appointments. Patient is A&Ox3. Respirations even and non-labored on 2 liters via NC with portable oxygen. Patient wheel chaired to private car.
--- NOTE | 2020-07-29 19:34 | USCV_ITS ---
Kulwant Bishop Age: 60 Gender: M : 1960 Exam Date: 07/29/2020 09:57 Ordering Phys: Thor Valenzuela MD ([email or web address]) Technologist: Akilah Joseph Exam Location: [facility] [place] Indication: CHF BP: 135 / 83 HR: 75 Rhythm: Sinus Technical Quality: Fair MEASUREMENTS (Male / Female) Normal Values 2D ECHO LV Diastolic Diameter PLAX 4.7 cm 4.2 - 5.9 / 3.9 - 5.3 cm LV Systolic Diameter PLAX 4.4 cm LV Chamber Size 4.2 cm IVS Diastolic Thickness 1.2 cm 0.6 - 1.0 / 0.6 - 0.9 cm IVS Systolic Thickness 1.2 cm LVPW Diastolic Thickness 2.5 cm 0.6 - 1.0 / 0.6 - 0.9 cm LVPW Systolic Thickness 3.0 cm RV Chamber Size 2.9 cm LVOT Diameter 2.0 cm LV Ejection Fraction 2D Teich 13.5 % LV Ejection Fraction MOD 2C 40.8 % LV Ejection Fraction 2C AL 44.2 % LA Diameter 5.3 cm LA Width 4.8 cm LA Height 4.2 cm RA Width 3.9 cm RA Height 5.5 cm Aorta at Sinotubular Diameter 3.6 cm M-MODE LV Diastolic Diameter MM 8.8 cm 4.2 - 5.9 / 3.9 - 5.3 cm LV Systolic Diameter MM 7.0 cm LV Ejection Fraction MM Teich 38.8 % IVS Diastolic Thickness MM 0.9 cm 0.6 - 1.0 / 0.6 - 0.9 cm IVS Systolic Thickness MM 1.4 cm LVPW Diastolic Thickness MM 1.1 cm 0.6 - 1.0 / 0.6 - 0.9 cm LVPW Systolic Thickness MM 1.2 cm Aortic Annulus Diameter 3.6 cm LA Ao Ratio MM 1.5 MV E Point Septal Separation 1.5 cm DOPPLER AV Peak Velocity 114.0 cm/s LVOT Peak Velocity 89.0 cm/s AV Area Cont Eq vti 3.3 cm squared AV Area Cont Eq pk 2.6 cm squared MV Area PHT 3.5 cm squared Mitral E to A Ratio 3.9 MV E' Velocity 10.0 cm/s Mitral E to MV E' Ratio 10.0 Mitral E to LV E' Lateral Ratio 12.0 Mitral E to LV E' Septal Ratio 8.7 TR Peak Velocity 295.0 cm/s TR Peak Gradient 34.7 mmHg TV Peak E Velocity 49.0 cm/s Right Atrial Pressure 3.0 mmHg Pulmonary Artery Systolic Pressu 37.8 mmHg PV Peak Velocity 46.0 cm/s RV Acceleration Time 0.1 s RV Ejection Time 0.2 s RV AcT/ET 0.3 FINDINGS Left Ventricle Moderate hypokinesia of the basal and mid septal and anteroseptal segments. Severe hypokinesia of the inferobasal segment. LV ejection fraction around 40%. Right Ventricle Normal right ventricular size and systolic function. Right Atrium Mildly increased right atrial size. Left Atrium Mildly increased left atrial size. Mitral Valve Thickened mitral valve. Moderately severe mitral regurgitation Aortic Valve Thickened aortic valve. Tricuspid Valve Trace to mild tricuspid valve regurgitation. Pulmonic Valve No pulmonary valve regurgitation. Pericardium No significant pericardial effusion Aorta Normal aortic annulus size. CONCLUSIONS 1. Normal LV size with diminished ejection fraction of 40%. 2. Multiple wall motion normalities as mentioned above. 3. Mild biatrial lodgment. 4. Moderately severe mitral regurgitation. 5. Trace to mild tricuspid regurgitation. 6. Estimated pulmonary artery peak systolic pressure of 38 mmHg 7. No pericardial effusion 8. Technically somewhat difficult study No previous study is available for comparison. Consider MALIK, to better evaluate the mitral valve and mitral regurgitation Dr Thor Valenzuela MD FAC (Electronically Signed) Final Date: 29 July 2020 12:20 S
== END 2020-07-29 16:30 | disposition home or self-care (01) ==
LOC: ER 18:02 → CSU 07-28 06:45 → MEDSURG 07-28 06:45
PROVIDERS: Emergency Medicine; Admitting Provider Student in an Organized Health Care Education/Training Program; PCP Family Medicine; Visit Provider Internal Medicine
DX: I11.0 Hypertensive heart disease with heart failure (principal); I50.23 Acute on chronic systolic (congestive) heart failure; I25.5 Ischemic cardiomyopathy; J96.01 Acute respiratory failure with hypoxia; I48.91 Unspecified atrial fibrillation; E11.9 Type 2 diabetes mellitus without complications; I25.10 Atherosclerotic heart disease of native coronary artery without angina pectoris; D64.9 Anemia, unspecified; I34.0 Nonrheumatic mitral (valve) insufficiency; D72.829 Elevated white blood cell count, unspecified; E87.5 Hyperkalemia; N17.9 Acute kidney failure, unspecified; R79.89 Other specified abnormal findings of blood chemistry; Z87.891 Personal history of nicotine dependence; Z79.82 Long term (current) use of aspirin; Z79.01 Long term (current) use of anticoagulants; Z95.5 Presence of coronary angioplasty implant and graft
CPT/HCPCS: 12345; 36415; 36416; 36600; 71045; 80048; 80051; 80053; 80069; 81003; 82550; 82810; 82962; 83036; 83605; 83690; 83735; 83880; 83986; 84145; 84484; 85007; 85025; 85610; 93005; 93306; 96374; 96375; 97110; 97116; 97162; 97166; 97535; 99283; 99285; A9281; G0378; J1940; J2270

== ENCOUNTER → 2020-10-09 11:20 | Outpatient (BNVA) | payer BC, SELFPAY | PROVIDERS: PCP Family Medicine; Visit Provider Internal Medicine Cardiovascular Disease | DX: I25.5 Ischemic cardiomyopathy (principal); E11.9 Type 2 diabetes mellitus without complications; I50.33 Acute on chronic diastolic (congestive) heart failure; I25.10 Atherosclerotic heart disease of native coronary artery without angina pectoris | CPT/HCPCS: 80048; 83880 ==

== ENCOUNTER 2021-03-10 12:35 | Outpatient (CLI) | payer BC, SELFPAY ==
--- NOTE | 2021-03-10 13:18 | PFTS_ITS ---
Date of Study:03/10/21 Date of Dictation: MECHANICS: Forced vital capacity (FVC) is reduced. Forced expiratory volume in one second (FEV1) is reduced. FEV1/FVC is reduced. FLOW VOLUME LOOP: Reduced flow at all lung volumes with significant scooping. LUNG VOLUMES: Total lung capacity (TLC) is normal. Residual volume (RV) is increased. DIFFUSING CAPACITY FOR CARBON MONOXIDE: Moderately reduced. INTERPRETATION: The postbronchodilator spirometry is consistent with moderate airflow obstruction. There is no significant postbronchodilator response. Lung volumes are consistent with mild air trapping. Gas exchange (DLCO) is moderately reduced. MTDD
== END 2021-03-10 12:36 | disposition home or self-care (01) ==
LOC: RT 12:37
PROVIDERS: PCP Family Medicine; Visit Provider Internal Medicine Critical Care Medicine
DX: J43.9 Emphysema, unspecified (principal)
CPT/HCPCS: 94060; 94618; 94726; 94729; J7611

== ENCOUNTER 2021-06-22 12:30 | Outpatient (CLI) | payer BC, SELFPAY | END 2021-06-22 12:31 | disposition home or self-care (01) | LOC: SLEEP 06-23 10:13 | PROVIDERS: PCP Family Medicine; Visit Provider Family Medicine | DX: G47.10 Hypersomnia, unspecified (principal) | CPT/HCPCS: G0399 ==

== ENCOUNTER 2022-05-03 08:01 | Outpatient (CLI) | payer BC, SELFPAY ==
[2022-05-03 08:54] LABS: Blood Urea Nitrogen 19 mg/dL (8-23); Calcium 9.2 mg/dL (8.5-10.5); Carbon Dioxide 27 mmol/L (22-29); Glucose 132 mg/dL (65-115); NT Pro B Type Natriuretic Pept 207 pg/mL (0-125)
[2022-05-03 08:59] LABS: Anion Gap 14.3 (5-19); Chloride 99 mmol/L (98-107); Osmolality Calculated 286 mOsm/kg (285-295); Potassium 4.3 mmol/L (3.5-5.1); Sodium 136 mmol/L (136-145)
== END 2022-05-03 08:02 | disposition home or self-care (01) ==
PROVIDERS: PCP Family Medicine; Visit Provider Internal Medicine Cardiovascular Disease
DX: I50.33 Acute on chronic diastolic (congestive) heart failure (principal); R06.02 Shortness of breath
CPT/HCPCS: 80048; 83880

== ENCOUNTER 2022-08-13 14:56 | Emergency (ER) | payer BC, SELFPAY ==
[2022-08-13 15:02] VITALS: BP 123/88; PULSE 79; RESP 18; TEMP 36.7; O2SAT 94; BMI 39.5
--- NOTE | 2022-08-13 16:37 | XRR_ITS ---
PROCEDURE INFORMATION: Exam: XR Chest Exam date and time: 08/13/2022 5:02 PM Age: 62 years old Clinical indication: Cough; Prior surgery; Surgery date: 6+ months; Surgery type: Stints; Additional info: Dyspnea/cough TECHNIQUE: Imaging protocol: Radiologic exam of the chest. Views: 1 view. COMPARISON: CR XR chest 1V portable [id number] 07/27/2020 4:14 PM FINDINGS: Lungs: Interval increase in the lung volumes. Stable minimal stranding in the left lung apex. Very small calcified granuloma in the lateral right middle to upper lung still present. No suggestion of increased interstitial markings currently. No interval consolidation. Pleural spaces: Still no pneumothorax or apparent pleural fluid. Heart/Mediastinum: Probable borderline cardiomegaly considering the lordosis. High likelihood of interval decrease in the heart size. Bones/joints: No suggestion of acute bony disease. XR/XR chest 1V portable [id number] IMPRESSION: No acute findings. Interval changes detailed above.
--- NOTE | 2022-08-13 16:50 | W.ED.URI ---
Documented by User: Timothy Bolton DO 08/25/22 09:25 HPI - URI/Sore Throat General: Chief Complaint: Upper Respiratory Infection Stated Complaint: SOB Time Seen by Provider: 08/13/22 16:15 Source: patient Mode of arrival: ambulatory Limitations: no limitations History of Present Illness: 62 year-old male presents emergency room by private vehicle complaining of sinus congestion drainage productive cough for the last several days. He has a history of COPD does wear oxygen at night. He has been taking amoxicillin from a farm store. He has not been using any albuterol. He does still smoke. He has a history of COPD he does not use oxygen during the day. He is on Anoro which she still takes regularly. MD elicited complaint: cough, sore throat and nasal congestion Pertinent past history: COPD Onset (ago): day(s) Consistency: constant Severity: moderate Description of mucous: yellow Able to tolerate fluids by mouth: Yes Exacerbating factors: exertion Relieving factors: rest and other (Bronchodilators) Associated symptoms: Reports congestion, cough, nasal congestion, rhinorrhea and short of breath; Deny abdominal pain, change in voice, chills, chest pain, diarrhea, epistaxis, ear or mastoid pain, fever(s), headache(s), myalgias, nausea, rash, sinus pain, stiffness, sore throat or vomiting Treatments prior to arrival: antibiotics (Veterinary antibiotics) Review of Systems Const: Denies: fever(s) or chills ENMT: Reports: nasal congestion; Denies: ear or mastoid pain, epistaxis or sinus pain Card: Denies: chest pain Resp: Reports: dyspnea, productive cough and wheezing; Denies: non-productive cough GI: Denies: abdominal pain, nausea, vomiting or diarrhea : Denies: flank pain, difficulty urinating, dysuria, urinary frequency or urinary urgency Skin/Breast: Denies: rash or pruritus Neuro: Denies: headache(s) PFSH ED PFSH: Medical History ACC/AHA stage C congestive heart failure due to ischemic cardiomyopathy Acute on chronic systolic heart failure Atherosclerosis of coronary artery of [place] heart without angina pectoris Atrial fibrillation 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 Cardiomyopathy Chronic anticoagulation Congestive heart failure Coronary artery disease DM type 2 (diabetes mellitus, type 2) Dyslipidemia (high LDL; low HDL) Hypertension Intermittent atrial fibrillation Mitral valve regurgitation Surgical History Hx of colonoscopy Removal of polyp tubular adenoma S/P coronary artery stent placement Stented coronary artery Circumflex, 07/23 at [facility] Family History Father Chronic kidney disease (CKD) Grandfather Cancer Grandmother Diabetes Denies family history of CAD (coronary artery disease) Clotting disorder Dementia Suicide Anesthesia complication Bleeding disorder Lung disease Stroke Social History Smoking and tobacco status: current every day smoker (1 pack ) Quit status (tobacco): has quit using tobacco Year quit tobacco: 2014 2PPD x 45years Second hand smoke exposure: No Alcohol intake: former Lives independently: Yes Household members: spouse Housing: House Marital status: service: No Current occupational status: retired History of recent travel: No Current gender identity: Male Physical Exam Const: GENERAL APPEARANCE: cooperative and comfortable ORIENTATION/CONSCIOUSNESS: Yes awake, Yes oriented to person, Yes oriented to place and Yes oriented to time HENMT: COMMON NORMALS: normocephalic, atraumatic, hearing grossly normal bilaterally and external ears normal HEAD & SCALP: normocephalic and atraumatic EXTERNAL EAR: Yes external ears normal Resp: AUSCULTATION: rhonchi and wheezes Cardio: COMMON NORMALS: regular rate, regular rhythm and No murmurs present (Cardio) RATE: regular rate RHYTHM: regular rhythm GI: COMMON NORMALS: Soft to palpation and No hepatosplenomegaly present AUSCULTATION: Yes normoactive bowel sounds PALPATION: Yes Soft to palpation, No Tenderness to palpation present (GI), No Guarding due to palpation present (GI) and Yes No hepatosplenomegaly present Extremity: COMMON NORMALS: normal to inspection, capillary refill normal, no clubbing, cyanosis or edema, no calf tenderness and no pedal edema Neuro: SENSORIUM/ORIENTATION: Yes oriented to person, Yes oriented to place and Yes oriented to time Skin: COMMON NORMALS: no rashes or lesions noted GENERAL SKIN EXAM: no rashes or lesions noted Course Vital Signs: Vital signs: Vital Signs Temperature 98.1 F 08/13/22 15:02 Pulse Rate 20 L 08/13/22 19:41 Respiratory Rate 18 08/13/22 15:02 Blood Pressure 123/88 08/13/22 15:02 Pulse Oximetry 92 08/13/22 19:41 Oxygen Delivery Me thod 08/13/22 15:02 MDM - URI/Sore Throat Medical Decision Making Care signed out to Dr. Zafar at change of shift. See final notes for diagnosis and disposition. Patient presents here with likely bronchitis he feels improved after breathing treatments he did get Decadron here we will place him on doxycycline he is stable for discharge he is to follow-up with PCP and return if worsening he understands agrees to plan. Medical Records I reviewed the patient's medical records. Lab Data I reviewed the patient's lab results. Radiology Impressions Chest X-Ray 08/13/22 16:37 IMPRESSION: No acute findings. Interval changes detailed above. Laboratory Results Coronavirus 229E (PCR) Not detected (NOT DETECT) 08/13/22 17:08 Human Metapneumovir PCR Not detected (NOT DETECT) 08/13/22 19:29 Entero/Rhino (PCR) Detected (NOT DETECT) A 08/13/22 19:29 SARS-CoV-2 (PCR) Not detected (NOT DETECT) 08/13/22 17:08 Discharge Plan Discharge Patient Disposition: Home Clinical Impression: Bronchitis Condition: Stable Prescriptions: No Action metoprolol tartrate 50 mg tablet 50 mg PO BID levothyroxine 75 mcg tablet 75 mcg PO DAILY amlodipine 10 mg tablet 10 mg PO DAILY 90 Days Qty: 90 3RF fluticasone propionate [Flonase Allergy Relief] 50 mcg/actuation spray,suspension 1 spray intranasal BID 30 Days Qty: 16 6RF Rx Instructions: administer into each nostril amiodarone 200 mg tablet 100 mg PO DAILY Qty: 90 0RF Rx Instructions: *Dose reduced - metal mouth taste Anoro Ellipta 62.5-25 mcg/actuation blister with device See Rx Instructions .ROUTE .COMPLEX Qty: 60 6RF Dose Instruction: INHALE 1 PUFF BY MOUTH ONCE DAILY FOR 30 DAYS Rx Instructions: INHALE 1 PUFF BY MOUTH ONCE DAILY FOR 30 DAYS Januvia 100 mg tablet 50 mg PO DAILY Qty: 45 3RF Entresto 97-103 mg tablet 1 tab PO BID Qty: 180 3RF atorvastatin 40 mg tablet 40 mg PO QPM clopidogrel 75 mg tablet 75 mg PO DAILY Eliquis 5 mg tablet 5 mg PO BID Discharge Orders: Discharge ED (Routine); Ordered 08/13/22 Ordered By: Margarita Zafar Referrals: Brooklyn Padilla MD [Primary Care Provider] - Discharge Diet: Advance as tolerated Discharge Activity: Resume usual activity Patient Instructions: Acute Bronchitis (ED) Coding Level of Care Code ED Forensic Analyst for Chg Fwd Documented by User: Margarita Zafar MD 08/13/22 19:45 HPI - URI/Sore Throat General: Chief Complaint: Upper Respiratory Infection Stated Complaint: SOB Time Seen by Provider: 08/13/22 16:15 PFSH ED PFSH: Medical History ACC/AHA stage C congestive heart failure due to ischemic cardiomyopathy Acute on chronic systolic heart failure Atherosclerosis of coronary artery of [place] heart without angina pectoris Atrial fibrillation 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 Cardiomyopathy Chronic anticoagulation Congestive heart failure Coronary artery disease DM type 2 (diabetes mellitus, type 2) Dyslipidemia (high LDL; low HDL) Hypertension Intermittent atrial fibrillation Mitral valve regurgitation Surgical History Hx of colonoscopy Removal of polyp tubular adenoma S/P coronary artery stent placement Stented coronary artery Circumflex, 07/23 at [facility] Family History Father Chronic kidney disease (CKD) Grandfather Cancer Grandmother Diabetes Denies family history of CAD (coronary artery disease) Clotting disorder Dementia Suicide Anesthesia complication Bleeding disorder Lung disease Stroke Social History Smoking and tobacco status: current every day smoker (1 pack ) Quit status (tobacco): has quit using tobacco Year quit tobacco: 2014 2PPD x 45years Second hand smoke exposure: No Alcohol intake: former Lives independently: Yes Household members: spouse Housing: House Marital status: service: No Current occupational status: retired History of recent travel: No Current gender identity: Male Course Vital Signs: Vital signs: Vital Signs Temperature 98.1 F 08/13/22 15:02 Pulse Rate 20 L 08/13/22 19:41 Respiratory Rate 18 08/13/22 15:02 Blood Pressure 123/88 08/13/22 15:02 Pulse Oximetry 92 08/13/22 19:41 Oxygen Delivery Me thod 08/13/22 15:02 MDM - URI/Sore Throat Medical Decision Making Patient presents here with likely bronchitis he feels improved after breathing treatments he did get Decadron here we will place him on doxycycline he is stable for discharge he is to follow-up with PCP and return if worsening he understands agrees to plan. Lab Data Radiology Impressions Chest X-Ray 08/13/22 16:37 IMPRESSION: No acute findings. Interval changes detailed above. Laboratory Results Coronavirus 229E (PCR) Not detected (NOT DETECT) 08/13/22 17:08 Human Metapneumovir PCR Not detected (NOT DETECT) 08/13/22 19:29 Entero/Rhino (PCR) Detected (NOT DETECT) A 08/13/22 19:29 SARS-CoV-2 (PCR) Not detected (NOT DETECT) 08/13/22 17:08 Discharge Plan Discharge Patient Disposition: Home Clinical Impression: Bronchitis Condition: Stable Prescriptions: No Action metoprolol tartrate 50 mg tablet 50 mg PO BID levothyroxine 75 mcg tablet 75 mcg PO DAILY amlodipine 10 mg tablet 10 mg PO DAILY 90 Days Qty: 90 3RF fluticasone propionate [Flonase Allergy Relief] 50 mcg/actuation spray,suspension 1 spray intranasal BID 30 Days Qty: 16 6RF Rx Instructions: administer into each nostril amiodarone 200 mg tablet 100 mg PO DAILY Qty: 90 0RF Rx Instructions: *Dose reduced - metal mouth taste Anoro Ellipta 62.5-25 mcg/actuation blister with device See Rx Instructions .ROUTE .COMPLEX Qty: 60 6RF Dose Instruction: INHALE 1 PUFF BY MOUTH ONCE DAILY FOR 30 DAYS Rx Instructions: INHALE 1 PUFF BY MOUTH ONCE DAILY FOR 30 DAYS Januvia 100 mg tablet 50 mg PO DAILY Qty: 45 3RF Entresto 97-103 mg tablet 1 tab PO BID Qty: 180 3RF atorvastatin 40 mg tablet 40 mg PO QPM clopidogrel 75 mg tablet 75 mg PO DAILY Eliquis 5 mg tablet 5 mg PO BID Discharge Orders: Discharge ED (Routine); Ordered 08/13/22 Ordered By: Margarita Zafar Referrals: Brooklyn Padilla MD [Primary Care Provider] - Discharge Diet: Advance as tolerated Discharge Activity: Resume usual activity Patient Instructions: Acute Bronchitis (ED) Coding Level of Care Code ED Forensic Analyst for Vianca Maloney
[2022-08-13] MEDS: dexamethasone 10 mg/mL INJ IM (17:05)
[2022-08-13 18:53] LABS: Adenovirus Not Detected (NOT DETECT); Chlamydia Pneumoniae Not Detected (NOT DETECT); Coronavirus 229E,HKU1,NL63,OC4 Not Detected (NOT DETECT); Human Metapneumovirus Not Detected (NOT DETECT); Human Rhinovirus/Enterovirus Detected (NOT DETECT); Influenza A Not Detected (NOT DETECT); Influenza A H1 Not Detected (NOT DETECT); Influenza A H1-2009 Not Detected (NOT DETECT); Influenza A H3 Not Detected (NOT DETECT); Influenza B Not Detected (NOT DETECT); Mycoplasma Pneumoniae Not Detected (NOT DETECT); Parainfluenza Virus Type 1 Not Detected (NOT DETECT); Parainfluenza Virus Type 2 Not Detected (NOT DETECT); Parainfluenza Virus Type 3 Not Detected (NOT DETECT); Parainfluenza Virus Type 4 Not Detected (NOT DETECT); Respiratory Syncytial Virus A Not Detected (NOT DETECT); Respiratory Syncytial Virus B Not Detected (NOT DETECT); SARS-COV-2 Not Detected (NOT DETECT)
--- NOTE | 2022-08-13 19:10 | PC.NURSE ---
patient o2 sat 88% on room air, states he wears 2l nc at night and baseline o2 sat is 90%. 2l nc applied, o2 sat at rest 91%. apple juice given.
--- NOTE | 2022-08-13 19:15 | PC.NURSE ---
assumed care of patient at this time from Carlyle HA
[2022-08-13 19:29] LABS: Human Metapneumovirus Not Detected (NOT DETECT); Human Rhinovirus/Enterovirus Detected (NOT DETECT); Results from Genmark
[2022-08-13 19:41] VITALS: PULSE 20; O2SAT 92
== END 2022-08-13 19:42 | disposition home or self-care (01) ==
PROVIDERS: Family Medicine; Emergency Provider Emergency Medicine; PCP Family Medicine
DX: J40 Bronchitis, not specified as acute or chronic (principal); Z79.01 Long term (current) use of anticoagulants; Z79.02 Long term (current) use of antithrombotics/antiplatelets; Z20.822 Contact with and (suspected) exposure to COVID-19; I11.0 Hypertensive heart disease with heart failure; I50.9 Heart failure, unspecified; I25.10 Atherosclerotic heart disease of native coronary artery without angina pectoris; Z85.048 Personal history of other malignant neoplasm of rectum, rectosigmoid junction, and anus; E11.9 Type 2 diabetes mellitus without complications; E78.5 Hyperlipidemia, unspecified; F17.210 Nicotine dependence, cigarettes, uncomplicated
CPT/HCPCS: 71045; 87635; 87801; 96372; 99284; J1100

== ENCOUNTER 2022-11-07 20:41 | Emergency (ER) | payer OTHER, SELFPAY ==
[2022-11-07 20:58] VITALS: BP 146/88; PULSE 86; RESP 18; TEMP 36.8; O2SAT 97; BMI 37.7
--- NOTE | 2022-11-07 21:28 | XRR_ITS ---
PROCEDURE INFORMATION: Exam: XR Right Hand Exam date and time: 11/07/2022 10:05 PM Age: 62 years old Clinical indication: Injury or trauma; Other: Cut with wood splitter 2nd digit; Blunt trauma (contusions or hematomas); Right; Index finger; Additional info: Laceration distal TECHNIQUE: Imaging protocol: Radiologic exam of the Right hand. Views: 3 or more views. COMPARISON: No relevant prior studies available. FINDINGS: Bones/joints: Hairline nondisplaced horizontal fracture through the distal phalangeal tuft of the index finger. Soft tissues: Soft tissue swelling over the index finger. XR/XR hand RT min 3V* [id number] IMPRESSION: 1. Soft tissue swelling over the index finger. 2. Hairline nondisplaced horizontal fracture through the distal phalangeal tuft of the index finger.
[2022-11-07] MEDS: tetanus-dipt-pertussis 0.5 mL SDV IM (21:48)
--- NOTE | 2022-11-07 22:48 | W.ED.WOUNDLC ---
HPI - Wound/Laceration General: Chief Complaint: Wound/Laceration Stated Complaint: right finger lac Time Seen by Provider: 11/07/22 21:04 History of Present Illness: 62-year-old male patient comes into the emergency department with a laceration to the distal portion of his second digit on his right finger. Patient states he was chopping wood and got it caught. Patient is on Eliquis however patient arrives with bleeding controlled. Patient denies any other injury or trauma. Patient states this happened about 2 hours ago. Patient's tetanus shot is not up-to-date Associated symptoms: Denies chills, fever(s), nausea, syncope or vomiting Review of Systems Const: Denies: fever(s), chills, body aches, change in appetite, change in weight, fatigue, malaise or diaphoresis Eyes: Denies: change in vision, blurry vision, blind spots, photophobia, eye discomfort, eye discharge, eye redness, floaters or seeing flashes ENMT: Denies: throat pain, uvular edema, enlarged tonsils, odynophagia, hoarseness, mouth pain, swelling of lips/tongue, oral sores, bleeding gums, dental pain, dry mouth, ear or mastoid pain, ear discharge, change in hearing, tinnitus, disequilibrium, nasal discharge, nasal congestion, post nasal drip or sinus pain Card: Denies: chest pain, palpitations, irregular heart rhythm, edema, swelling of feet/ankles, lightheadedness, syncope, pre-syncope, dyspnea on exertion, orthopnea, leg pain with exertion or acrocyanosis Resp: Denies: dyspnea, productive cough, non-productive cough, wheezing, stridor, pain on inspiration, change in phlegm color, hemoptysis or chest congestion GI: Denies: abdominal pain, nausea, vomiting, hematemesis, dysphagia, diarrhea, constipation, GI cramping, change in bowel habits or rectal pain : Denies: flank pain, dysuria, urinary frequency, urinary urgency, urinary hesitancy or hematuria Musc: Denies: neck pain, back pain, extremity swelling, joint pain, joint swelling, joint redness, joint warmth or deformity Skin/Breast: Denies: rash, pruritus, erythema, sores, new lesions, changes in skin color or dry skin Neuro: Denies: headache(s), numbness in extremities, weakness in extremities, sensory changes, lack of coordination, difficulty walking, frequent falls, dizziness, vertigo, confusion, behavioral changes, Slurred speech present, difficulty communicating thoughts or seizure-like activity Psych: Denies: anxiety, depression, suicidal ideation or homicidal ideation PFS ED PFSH: Medical History ACC/AHA stage C congestive heart failure due to ischemic cardiomyopathy Acute on chronic systolic heart failure Atherosclerosis of coronary artery of bois forte heart without angina pectoris Atrial fibrillation 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 Cardiomyopathy Chronic anticoagulation Congestive heart failure Coronary artery disease DM type 2 (diabetes mellitus, type 2) Dyslipidemia (high LDL; low HDL) Hypertension Intermittent atrial fibrillation Mitral valve regurgitation Surgical History Hx of colonoscopy Removal of polyp tubular adenoma S/P coronary artery stent placement Stented coronary artery Circumflex, 07/23 at [facility] Family History Father Chronic kidney disease (CKD) Grandfather Cancer Grandmother Diabetes Denies family history of CAD (coronary artery disease) Clotting disorder Dementia Suicide Anesthesia complication Bleeding disorder Lung disease Stroke Social History Smoking and tobacco status: current every day smoker (1 pack ) Quit status (tobacco): has quit using tobacco Year quit tobacco: 2014 2PPD x 45years Second hand smoke exposure: No Alcohol intake: former Lives independently: Yes Household members: spouse Housing: House Marital status: service: No Current occupational status: retired History of recent travel: No Current gender identity: Male Physical Exam Const: COMMON NORMALS: no acute distress, average body habitus, patient oriented x3, no limitations, healthy appearing, alert and well nourished HENMT: THROAT: no uvular edema Resp: COMMON NORMALS: normal respiratory effort Cardio: COMMON NORMALS: regular rate and regular rhythm RATE: regular rate RHYTHM: regular rhythm Extremity: RIGHT UPPER EXTREMITY: Yes hand & digits (Avulsion circular 2.5 cm laceration to the distal portion of the right seco) Neuro: COMMON NORMALS: patient oriented x3 SENSORIUM/ORIENTATION: Yes alert Procedures Laceration Laceration 1: Site: other (Distal portion of the right second digit) Size (cm): 2.5 Description: flap and irregular Depth: simple, single layer Local Anesthetic: lidocaine 1% and bupivacaine 0.25% Amount of anesthesia used (mL): 8 Pre-repair: wound explored and irrigated extensively Skin layer closed with: nylon Size (cm): 5-0 Number of sutures: 9 Technique: simple, interrupted MDM - Wound/Laceration Medical Decision Making Patient is well-appearing nontoxic and in no acute distress.. 62-year-old male patient comes into the emergency department with a laceration to the distal portion of his second digit on his right finger. Patient states he was chopping wood and got it caught. Patient is on Eliquis however patient arrives with bleeding controlled. Patient denies any other injury or trauma. Patient states this happened about 2 hours ago. Patient's tetanus shot is not up-to-date please see procedure note for suture repair. Based on patient's x-ray it appears patient has a tuft fracture. I will treat this as a open tuft fracture. Patient was given Ancef IM. I will send patient home with antibiotics. Patient was given [place] here for pain control. I will have patient follow-up with Dr. Meño Santillan for a follow-up. Return precautions have been advised and home care instructions have been reviewed Differential Diagnosis Likely laceration and avulsion of skin Lab Data Radiology Impressions Hand X-Ray 11/07/22 21:28 IMPRESSION: 1. Soft tissue swelling over the index finger. 2. Hairline nondisplaced horizontal fracture through the distal phalangeal tuft of the index finger. Discharge Plan Discharge Condition: Stable Prescriptions: No Action metoprolol tartrate 50 mg tablet 50 mg PO BID levothyroxine 75 mcg tablet 75 mcg PO DAILY amlodipine 10 mg tablet 10 mg PO DAILY 90 Days Qty: 90 3RF fluticasone propionate [Flonase Allergy Relief] 50 mcg/actuation spray,suspension 1 spray intranasal BID 30 Days Qty: 16 6RF Rx Instructions: administer into each nostril amiodarone 200 mg tablet 100 mg PO DAILY Qty: 90 0RF Rx Instructions: *Dose reduced - metal mouth taste Januvia 100 mg tablet 50 mg PO DAILY Qty: 45 3RF Entresto 97-103 mg tablet 1 tab PO BID Qty: 180 3RF Anoro Ellipta 62.5-25 mcg/actuation blister with device See Rx Instructions .ROUTE .COMPLEX Qty: 60 6RF Dose Instruction: INHALE 1 PUFF BY MOUTH ONCE DAILY FOR 30 DAYS Rx Instructions: INHALE 1 PUFF BY MOUTH ONCE DAILY FOR 30 DAYS atorvastatin 40 mg tablet 40 mg PO QPM clopidogrel 75 mg tablet 75 mg PO DAILY Eliquis 5 mg tablet 5 mg PO BID Referrals: Brooklyn Padilla MD [Primary Care Provider] - Coding Level of Care Code ED 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
[2022-11-07] MEDS: HYDROcodone-acetaminophen 5-325 mg Tablet 1 TAB PO (23:00)
[2022-11-07] MEDS: ceFAZolin 2,000 MG in SYRINGE 1 EACH 100 MG IM (23:45)
[2022-11-07 23:54] VITALS: RESP 18
== END 2022-11-07 23:55 | disposition home or self-care (01) ==
PROVIDERS: Emergency Provider Registered Nurse; PCP Family Medicine
DX: S61.210A Laceration without foreign body of right index finger without damage to nail, initial encounter (principal); S62.660A Nondisplaced fracture of distal phalanx of right index finger, initial encounter for closed fracture; Z79.01 Long term (current) use of anticoagulants; Z79.02 Long term (current) use of antithrombotics/antiplatelets; F17.210 Nicotine dependence, cigarettes, uncomplicated; I11.0 Hypertensive heart disease with heart failure; I50.23 Acute on chronic systolic (congestive) heart failure; I25.10 Atherosclerotic heart disease of native coronary artery without angina pectoris; E11.9 Type 2 diabetes mellitus without complications; E78.5 Hyperlipidemia, unspecified; X58.XXXA Exposure to other specified factors, initial encounter; Z23 Encounter for immunization
CPT/HCPCS: 12001; 73130; 90471; 90715; 96372; 99284; J0690

== ENCOUNTER 2023-02-24 13:13 | Outpatient (CLI) | payer OTHER, SELFPAY ==
--- NOTE | 2023-02-24 13:30 | USCV_ITS ---
Kulwant Bishop Age: 62 Gender: M : 1960 Exam Date: 02/24/2023 13:46 Ordering Phys: Thor Valenzuela MD ([email or web address]) Technologist: Jocelyn Georges Exam Location: [facility] [place] Indication: Cardiomyopathy BP: / HR: 81 Rhythm: Sinus Technical Quality: Adequate MEASUREMENTS (Male / Female) Normal Values 2D ECHO LV Diastolic Diameter PLAX 6.0 cm 4.2 - 5.9 / 3.9 - 5.3 cm LV Systolic Diameter PLAX 4.5 cm LV Chamber Size 3.7 cm IVS Diastolic Thickness 1.8 cm 0.6 - 1.0 / 0.6 - 0.9 cm IVS Systolic Thickness 1.6 cm LVPW Diastolic Thickness 1.5 cm 0.6 - 1.0 / 0.6 - 0.9 cm LVPW Systolic Thickness 1.7 cm RV Chamber Size 3.2 cm LVOT Diameter 2.4 cm LV Ejection Fraction 2D Teich 48.7 % LV Ejection Fraction MOD 2C 56.7 % LV Ejection Fraction 2C AL 57.5 % LA Diameter 4.2 cm LA Width 3.8 cm LA Height 4.3 cm RA Width 3.5 cm RA Height 3.2 cm Aorta at Sinotubular Diameter 4.1 cm IVC Diameter 1.8 cm M-MODE Aortic Annulus Diameter 4.1 cm LA Ao Ratio MM 1.1 MV E Point Septal Separation 1.4 cm DOPPLER AV Peak Velocity 128.0 cm/s LVOT Peak Velocity 83.0 cm/s AV Area Cont Eq vti 3.1 cm squared AV Area Cont Eq pk 2.9 cm squared MV Area PHT 4.9 cm squared Mitral E to A Ratio 1.1 MV E' Velocity 49.0 cm/s Mitral E to MV E' Ratio 8.2 Mitral E to LV E' Lateral Ratio 7.0 Mitral E to LV E' Septal Ratio 9.7 TR Peak Velocity 124.4 cm/s TR Peak Gradient 6.2 mmHg TR Mean Velocity 81.0 cm/s TR Mean Gradient 3.2 mmHg TR Velocity Time Integral 25.6 cm TV Peak E Velocity 59.0 cm/s Right Atrial Pressure 3.0 mmHg Pulmonary Artery Systolic Pressu 9.2 mmHg RV Acceleration Time 0.2 s RV Ejection Time 0.3 s RV AcT/ET 0.6 FINDINGS Left Ventricle Normal left ventricular size slightly diminished ejection fraction of 49%. Mild diffuse hypokinesia of the left ventricle. Right Ventricle The right ventricle is normal in size and function. Right Atrium The right atrium is normal in size. Left Atrium Mildly increased left atrial size. Mitral Valve No gross abnormalities noted Aortic Valve No gross abnormalities noted Tricuspid Valve Tricuspid valve not well visualized. Trace tricuspid valve regurgitation. Estimated pulmonary artery peak systolic pressure is within normal limits Pulmonic Valve Pulmonic valve not well visualized. Pericardium Trivial pericardial effusion. Aorta Normal ascending aorta dimension. IVC Normal inferior vena cava. CONCLUSIONS Normal left ventricular size slightly diminished ejection fraction of 49%. Mild diffuse hypokinesia of the left ventricle. Mildly increased left atrial size. Trace tricuspid valve regurgitation. Estimated pulmonary artery peak systolic pressure is within normal limits. There is no pericardial effusion. There are no intracardiac masses. Compared to the study from 07/29/2020, left ventricular ejection fraction has improved from 40% to 49%. Dr Thor Valenzuela MD FACC (Electronically Signed) Final Date: 26 February 2023 17:15 S
== END 2023-02-24 13:14 | disposition home or self-care (01) ==
LOC: RAD 13:17
PROVIDERS: PCP Family Medicine; Visit Provider Internal Medicine Cardiovascular Disease
DX: R06.09 Other forms of dyspnea (principal); I51.7 Cardiomegaly
CPT/HCPCS: 93306

== ENCOUNTER → 2023-11-09 10:49 | Outpatient (BNVA) | payer OTHER, SELFPAY | PROVIDERS: PCP Family Medicine; Visit Provider Nurse Practitioner Family | DX: J06.9 Acute upper respiratory infection, unspecified (principal) | CPT/HCPCS: 87400 ==